=== PATIENT | male | born 1995 | race Caucasian/White ===

== ENCOUNTER 2018-08-01 16:04 | Emergency (ER) | payer BC ==
[2018-08-01 16:11] VITALS: BP 132/73; PULSE 78; RESP 18; TEMP 97.9
[2018-08-01] MEDS ORDERED: SULFAMETH-TMP DS STARTER PACK 2 TAB BTL PO STA (16:33)
[2018-08-01] MEDS ORDERED: CEPHALEXIN 500MG STARTER PACK 4 CAP BTL PO STA (16:33)
--- NOTE | 2018-08-01 16:36 | ED ---
General Adult HPI - General Chief complaint: Skin/Abscess/Foreign Body Stated complaint: FACIAL SWELLING Time Seen by Provider: 08/01/18 16:19 Source: patient, RN notes reviewed Mode of arrival: ambulatory Limitations: no limitations - History of Present Illness Initial comments: 23-year-old male presents to the emergency department for a chief complaint of abscess on the right side of the face. Patient states this started this morning. States that earlier he had some edema up to the lower portion of his right eye but since he has been up for the Day this has gone away. Denies fevers or chills. Denies any pain with movement of the eye denies any visual changes. Denies any pain in the eye whatsoever. Patient denies fevers or chills. Denies congestion. Patient has no other complaints at this time including shortness of breath, chest pain, abdominal pain, nausea or vomiting, headache, or visual changes. - Related Data Previous Rx's Medication Instructions Recorded Cephalexin [Keflex] 500 mg PO Q6HR 7 Days cap 08/01/18 Sulfamethox-Tmp 800-160Mg [Bactrim 1 tab PO Q12HR #14 tab 08/01/18 DS 800-160 mg] Allergies Allergy/AdvReac Type Severity Reaction Status Date / Time No Known Allergies Allergy Verified 08/01/18 16:11 Review of Systems ROS Statement: Those systems with pertinent positive or pertinent negative responses have been documented in the HPI. ROS Other: All systems not noted in ROS Statement are negative. Past Medical History Past Medical History: No Reported History History of Any Multi-Drug Resistant Organisms: None Reported Past Surgical History: No Surgical Hx Reported Past Psychological History: No Psychological Hx Reported Smoking Status: Former smoker Past Alcohol Use History: None Reported Past Drug Use History: None Reported General Exam Limitations: no limitations General appearance: alert, in no apparent distress Head exam: Present: atraumatic, normocephalic, normal inspection Eye exam: Present: normal appearance, PERRL, EOMI. Absent: scleral icterus, conjunctival injection, periorbital swelling (no right sided periorbital edema noted, no tenderness) ENT exam: Present: normal exam, mucous membranes moist Neck exam: Present: normal inspection, full ROM. Absent: tenderness, mening ismus, lymphadenopathy Respiratory exam: Present: normal lung sounds bilaterally. Absent: respiratory distress, wheezes, rales, rhonchi, stridor Cardiovascular Exam: Present: regular rate, normal rhythm, normal heart sounds. Absent: systolic murmur, diastolic murmur, rubs, gallop, clicks Neurological exam: Present: alert, oriented X3, CN II-XII intact Psychiatric exam: Present: normal affect, normal mood Skin exam: Present: other (There is a 1 cm x 1 cm abscess noted to the right cheek. No erythema or evidence of cellulitis.) Course Vital Signs 08/01/18 16:08 Temperature 97.9 F Pulse Rate 78 Respiratory 18 Rate Blood Pressure 132/73 O2 Sat by Pulse 98 Oximetry Procedures - Incision & Drainage Consent Obtained: verbal consent Indication: abscess Site: face Size (cm): 1 Anesthetic Used: lidocaine 1% Sterile Field Used?: Yes I&D Drainage Obtained: Pus Patient Tolerated Procedure: well (18 G needle used), no complications Medical Decision Making - Medical Decision Making 23-year-old male presents to the emergency department for a chief complaint of abscess noted to the right cheek. Mild edema around this however no edema noted to the right eye. Patient denies any visual changes, pain in the eye, or pain with extraocular movements. 1 cm x 1 cm abscess is noted. This was drained with an 18-gauge needle, purulent material expelled. Patient started on Keflex and Bactrim. However discussed her to return parameters as this is near the eye. Patient will return if this is worsening instead of improving, especially after 24 hours of antibiotic use. He will follow up with primary care in 1-2 days as well. Disposition Clinical Impression: Abscess Disposition: HOME SELF-CARE Condition: Good Instructions (If sedation given, give patient instructions): Abscess (ED), Warm Compress or Soak (ED) Additional Instructions: Please take antibiotics as directed. Please apply warm compresses for 20 minutes every hour or so. Follow-up with primary care in 1-2 days. However if you are noticing that after 24 hours this is worsening instead of improving then return here to the emergency department. Prescriptions: Sulfamethox-Tmp 800-160Mg [Bactrim DS 800-160 mg] 1 tab PO Q12HR #14 tab Cephalexin [Keflex] 500 mg PO Q6HR 7 Days cap Is patient prescribed a controlled substance at d/c from ED?: No Referrals: Veronica Bonilla MD [REFERRING] - 1-2 days Time of Disposition: 16:34
== END 2018-08-01 16:38 | disposition home or self-care (01) ==
LOC: EC 16:04
DX: L02.01 Cutaneous abscess of face (principal); Z87.891 Personal history of nicotine dependence
CPT/HCPCS: 10060; 99283

== ENCOUNTER 2018-11-08 15:48 | Emergency (ER) | payer BC ==
[2018-11-08 15:54] VITALS: RESP 18
[2018-11-08] MEDS ORDERED: KETOROLAC 30 MG/ML 1 ML VIAL IVP STA (16:19)
[2018-11-08 16:40] LABS: Basophils % (A) 1 %; Eosinophils # (A) 0.2 k/uL (0-0.7); Eosinophils % (A) 2 %; HCT 45.4 % (39.0-53.0); HGB 15.6 gm/dL (13.0-17.5); Lymphocytes # (A) 1.9 k/uL (1.0-4.8); Lymphocytes % (A) 24 %; MCH 29.7 pg (25.0-35.0); MCHC 34.4 g/dL (31.0-37.0); MCV 86.5 fL (80.0-100.0); Mean Platelet Volume 9.6; Monocytes # (A) 0.4 k/uL (0-1.0); Monocytes % (A) 5 %; Neutrophils # (A) 5.5 k/uL (1.3-7.7); Neutrophils % (A) 67 %; Platelet Count 226 k/uL (150-450); RBC 5.25 m/uL (4.30-5.90); WBC 8.1 k/uL (3.8-10.6)
--- NOTE | 2018-11-08 16:43 | ED ---
Chest Pain HPI - General Chief Complaint: Chest Pain Stated Complaint: CHEST PAIN Time Seen by Provider: 11/08/18 16:08 Source: patient Mode of arrival: wheelchair Limitations: no limitations - History of Present Illness Initial Comments: The patient is a 23-year-old male who presents to the emergency room with reported chest pain. Patient notes that the pain started around 3:00 today. It was sudden onset while he was at home sitting down feeding his baby. No history of similar in the past. He describes it as a "burning sensation" in his lungs. It is worse on the left side than the right. It is exacerbated by breathing. He denies taking any medications at home for his symptoms. He does report a tingling sensation in his bilateral hands. Denies any nausea, vomiting or diaphoresis. It was not provoked with food intake. He denies a cough, fever or hemoptysis. No recent upper respiratory infections. No history of DVTs or PEs. No family history of blood clotting disorders. No family history of DVT or PE. Denies any calf pain or swelling. No ripping or tearing sensation to his back. He denies any tingling or weakness in his lower extremities. No family history of sudden cardiac before the age of 50. He denies any abdominal pain. No pain in his flanks. Denies chest wall trauma or heavy lifting. There are no other alleviating, precipitating or modifying factors - Related Data Previous Rx's Medication Instructions Recorded Naproxen [Naprosyn] 500 mg PO Q12HR #20 tab 11/08/18 Allergies Allergy/AdvReac Type Severity Reaction Status Date / Time bee venom protein (honey bee) Allergy Anaphylaxis Verified 11/10/18 00:38 Review of Systems ROS Statement: Those systems with pertinent positive or pertinent negative responses have been documented in the HPI. ROS Other: All systems not noted in ROS Statement are negative. EKG Findings - EKG Comments: EKG Findings:: EKG demonstrates a normal sinus rhythm with a ventricular rate of 68. IN interval 140. QRS 80. QTC 397. There are mildly peaked T waves in V2 through V4. No inverted T waves. No signs of Akvbc-Ymyumgees-Bzpup or Brugada syndrome. No signs of ischemia or infarction. Past Medical History Past Medical History: No Reported History History of Any Multi-Drug Resistant Organisms: None Reported Past Surgical History: No Surgical Hx Reported Past Psychological History: Anxiety Smoking Status: Former smoker Past Alcohol Use History: None Reported Past Drug Use History: None Reported General Exam Limitations: no limitations General appearance: alert, in no apparent distress Head exam: Present: atraumatic, normocephalic, normal inspection Eye exam: Present: normal appearance, PERRL, EOMI. Absent: scleral icterus, conjunctival injection, periorbital swelling ENT exam: Present: normal exam, mucous membranes moist Neck exam: Present: normal inspection. Absent: tenderness, meningismus, lymphadenopathy Respiratory exam: Present: normal lung sounds bilaterally. Absent: respiratory distress, wheezes, rales, rhonchi, stridor Cardiovascular Exam: Present: regular rate, normal rhythm, normal heart sounds. Absent: systolic murmur, diastolic murmur, rubs, gallop, clicks GI/Abdominal exam: Present: soft, normal bowel sounds. Absent: distended, tenderness, guarding, rebound, rigid Extremities exam: Present: normal inspection, full ROM, normal capillary refill. Absent: tenderness, pedal edema, joint swelling, calf tenderness Back exam: Present: normal inspection Neurological exam: Present: alert, oriented X3, CN II-XII intact Psychiatric exam: Present: normal affect, normal mood Skin exam: Present: warm, dry, intact, normal color. Absent: rash Course Vital Signs 11/08/18 11/08/18 11/08/18 15:52 17:14 18:44 Temperature 97.7 F Pulse Rate 86 66 70 Respiratory 18 18 18 Rate Blood Pressure 149/86 120/81 120/83 O2 Sat by Pulse 100 98 98 Oximetry 11/08/18 11/08/18 19:10 20:01 Temperature 98.6 F Pulse Rate 80 62 Respiratory 18 18 Rate Blood Pressure 129/87 124/81 O2 Sat by Pulse 97 99 Oximetry Chest Pain MDM - Differential Diagnosis acute chest wall pain, pleurisy, pericarditis - MDM Upon arrival the patient was placed into room 15. A thorough history and physical exam was performed. The patient was hooked up to pulse ox and cardiac monitoring. A 12-lead EKG was performed which demonstrated normal sinus rhythm. IV was established. The patient was given 15 mg of Toradol. We did conduct laboratory studies the patient was sent for chest x-ray. Upon return, the results are discussed with the patient. He does admit to improvement in his symptoms however he does continue to have some discomfort. I did provide the patient's with 40 mg of Protonix. A bedside cardiac ultrasound was performed which demonstrated no pericardial effusion, pericardial tamponade or signs of a dilated right ventricle. I discussed the diagnosis, differential and treatment options. I did request that the patient stay for second troponin. Second troponin was drawn and is negative. At this time the patient will be discharged home and needs to follow-up with his primary care physician. Instructed him that he will need a formal echo, Holter monitoring and possibly an EGD. The patient understood. He did admit to improvement in his symptoms and was seen eating fast food in the exam room. Return parameters were discussed. If he has any new or worsening symptoms he should return to the emergency room. The patient was then discharged home in stable condition Disposition Clinical Impression: Chest pain Disposition: HOME SELF-CARE Condition: Stable Instructions (If sedation given, give patient instructions): Chest Pain (ED) Additional Instructions: Please follow-up with your primary care doctor in 1-2 days. Return to the emergency room for any new or worsening symptoms. You may need Holter monitoring, a formal echo and possibly an EGD Prescriptions: Naproxen [Naprosyn] 500 mg PO Q12HR #20 tab Is patient prescribed a controlled substance at d/c from ED?: No Referrals: Melony Kelley MD [Primary Care Provider] - 1-2 days Time of Disposition: 19:52
[2018-11-08 16:48] LABS: ALT 28 U/L (21-72); AST 23 U/L (17-59); African American GFR (CKD) >90 (>60 ml/min/1.73 sqM); Albumin 5.2 g/dL (3.5-5.0); Alkaline Phosphatase 63 U/L (38-126); Anion Gap 16 mmol/L; Blood Urea Nitrogen 13 mg/dL (9-20); Calcium 10.5 mg/dL (8.4-10.2); Carbon Dioxide 20 mmol/L (22-30); Chloride 102 mmol/L (98-107); Glucose 93 mg/dL (74-99); Magnesium 1.9 mg/dL (1.6-2.3); Non-African American GFR(CKD) >90 (>60 ml/min/1.73 sqM); Potassium 4.4 mmol/L (3.5-5.1); Sodium 138 mmol/L (137-145); Total Protein 8.7 g/dL (6.3-8.2)
[2018-11-08 16:52] LABS: D-Dimer <0.17 mg/L FEU (<0.60); Partial Thromboplastin Time 27.2 sec (22.0-30.0)
--- NOTE | 2018-11-08 16:57 | XR ---
EXAMINATION: XR chest 2V DATE AND TIME: 11/08/2018 4:42 PM CLINICAL INDICATION: PHH; Chest Pain TECHNIQUE: PA and lateral COMPARISON: 01/31/1995 FINDINGS: The lungs are clear. The pleural spaces are negative. The cardiac silhouette is not enlarged. The remainder of the mediastinal silhouette is unremarkable. The skeletal structures and soft tissues are negative for acute findings. IMPRESSION: NO ACUTE PROCESS.
[2018-11-08] MEDS ORDERED: PANTOPRAZOLE 40 MG/10 ML VIAL IVP STA (18:26)
[2018-11-08 20:03] VITALS: BP 124/81; PULSE 62; TEMP 98.6
== END 2018-11-08 20:06 | disposition home or self-care (01) ==
LOC: EC 15:48
DX: R07.9 Chest pain, unspecified (principal); R20.2 Paresthesia of skin; Z91.030 Bee allergy status; Z87.891 Personal history of nicotine dependence
CPT/HCPCS: 36415; 71046; 80053; 83690; 83735; 84484; 85025; 85379; 85610; 85652; 85730; 86140; 93005; 96374; 96375; 99285

== ENCOUNTER 2018-11-09 19:59 | Observation (INO) | payer BC ==
[2018-11-09] MEDS ORDERED: SODIUM CHLORIDE 0.9% 1,000 ML IV STA (20:12)
--- NOTE | 2018-11-09 20:35 | ED ---
Chest Pain HPI - General Chief Complaint: Chest Pain Stated Complaint: Chest Pain, [place] Time Seen by Provider: 11/09/18 20:13 Source: patient, RN notes reviewed, old records reviewed Mode of arrival: wheelchair Limitations: no limitations - History of Present Illness Initial Comments: This is a 23-year-old male the ER for evaluation presents today for evaluation of chest pain. Patient has history of chest pain significant. Chest pain is anterior chest left frontal chest feels like heaviness and tightness. Making patient mildly anxious. Patient denies any significant medical history no travel history no sick contacts no trauma no fever cough or congestion, patient denies drug or alcohol abuse. Occasionally smokes occasionally drinks. Family history of heart disease but no significant young sudden . MD Complaint: chest pain -: days(s) Onset: during rest, during exertion Pain Location: substernal, left chest Severity: mild Severity scale (1-10): 3 Quality: tightness, heaviness Consistency: constant Improves With: nothing Worsens With: nothing Anginal Symptoms: dyspnea Treatments Prior to Arrival: none - Related Data Previous Rx's Medication Instructions Recorded Naproxen [Naprosyn] 500 mg PO Q12HR #20 tab 11/08/18 Allergies Allergy/AdvReac Type Severity Reaction Status Date / Time bee venom protein (honey bee) Allergy Anaphylaxis Verified 11/09/18 20:16 Review of Systems ROS Statement: Those systems with pertinent positive or pertinent negative responses have been documented in the HPI. ROS Other: All systems not noted in ROS Statement are negative. EKG Findings - EKG Comments: EKG Findings:: EKG shows sinus rhythm rate 70, W[place] 1:30, QRS 86, QTc 460 Past Medical History Past Medical History: No Reported History History of Any Multi-Drug Resistant Organisms: None Reported Past Surgical History: No Surgical Hx Reported Past Psychological History: No Psychological Hx Reported Smoking Status: Current every day smoker Past Alcohol Use History: Occasional Past Drug Use History: None Reported General Exam Limitations: no limitations General appearance: alert, in no apparent distress Head exam: Present: atraumatic, normocephalic, normal inspection Eye exam: Present: normal appearance, PERRL, EOMI. Absent: scleral icterus, conjunctival injection, periorbital swelling ENT exam: Present: normal exam, mucous membranes moist Neck exam: Present: normal inspection. Absent: tenderness, meningismus, lymphadenopathy Respiratory exam: Present: normal lung sounds bilaterally. Absent: respiratory distress, wheezes, rales, rhonchi, stridor Cardiovascular Exam: Present: regular rate, normal rhythm, normal heart sounds. Absent: systolic murmur, diastolic murmur, rubs, gallop, clicks GI/Abdominal exam: Present: soft, normal bowel sounds. Absent: distended, tenderness, guarding, rebound, rigid Extremities exam: Present: normal inspection, full ROM, normal capillary refill. Absent: tenderness, pedal edema, joint swelling, calf tenderness Back exam: Present: normal inspection Neurological exam: Present: alert, oriented X3, CN II-XII intact Psychiatric exam: Present: normal affect, normal mood Skin exam: Present: warm, dry, intact, normal color. Absent: rash Course Vital Signs 11/09/18 11/09/18 20:03 20:37 Temperature 97.9 F Pulse Rate 80 Respiratory 18 Rate Blood Pressure 122/67 O2 Sat by Pulse 99 100 Oximetry - Reevaluation(s) Reevaluation #1: 11/09/18 21:36 Medical records reviewed Reevaluation #2: 11/09/18 21:36 no specific Findings to account for patient's symptoms Chest Pain MDM - MDM 23 male the ER for evaluation patient was essay for evaluation of chest pain, nonspecific chest pain here for yesterday for same today. Patient CT negative troponin still negative, EKG is unremarkable. Patient can be discharged home to follow-up with primary care regarding further evaluation of pain Disposition Clinical Impression: Chest pain Disposition: HOME SELF-CARE Condition: Good Instructions (If sedation given, give patient instructions): Chest Pain (ED) Is patient prescribed a controlled substance at d/c from ED?: No Referrals: Melony Kelley MD [Primary Care Provider] - 1-2 days
[2018-11-09 20:42] LABS: Partial Thromboplastin Time 27.4 sec (22.0-30.0); Prothrombin Time 10.9 sec (9.0-12.0)
[2018-11-09 20:43] LABS: ALT 26 U/L (21-72); AST 19 U/L (17-59); African American GFR (CKD) >90 (>60 ml/min/1.73 sqM); Albumin 4.9 g/dL (3.5-5.0); Alkaline Phosphatase 58 U/L (38-126); Anion Gap 14 mmol/L; Blood Urea Nitrogen 16 mg/dL (9-20); Calcium 9.9 mg/dL (8.4-10.2); Carbon Dioxide 20 mmol/L (22-30); Chloride 105 mmol/L (98-107); Creatine Kinase 94 U/L (55-170); Glucose 89 mg/dL (74-99); Potassium 4.1 mmol/L (3.5-5.1); Sodium 139 mmol/L (137-145); Total Bilirubin 1.4 mg/dL (0.2-1.3)
[2018-11-09] MEDS ORDERED: KETOROLAC 30 MG/ML 1 ML VIAL IVP STA (20:45)
[2018-11-09] MEDS ORDERED: DIAZEPAM 5 MG/ML 2 ML INJ IVP STA (20:45)
[2018-11-09 20:54] LABS: Creatine Kinase MB <0.2 ng/mL (0.0-2.4); Troponin I <0.012 ng/mL (0.000-0.034)
[2018-11-09 20:55] LABS: Basophils # (A) 0.1 k/uL (0-0.2); Basophils % (A) 1 %; Eosinophils # (A) 0.2 k/uL (0-0.7); Eosinophils % (A) 2 %; HCT 42.7 % (39.0-53.0); HGB 14.7 gm/dL (13.0-17.5); Lymphocytes # (A) 2.2 k/uL (1.0-4.8); Lymphocytes % (A) 30 %; MCH 29.7 pg (25.0-35.0); MCHC 34.3 g/dL (31.0-37.0); MCV 86.6 fL (80.0-100.0); Mean Platelet Volume 9.3; Monocytes # (A) 0.4 k/uL (0-1.0); Monocytes % (A) 6 %; Neutrophils # (A) 4.5 k/uL (1.3-7.7); Neutrophils % (A) 60 %; Platelet Count 230 k/uL (150-450); RBC 4.94 m/uL (4.30-5.90); WBC 7.5 k/uL (3.8-10.6)
--- NOTE | 2018-11-09 21:14 | XR ---
EXAMINATION: XR chest 2V DATE AND TIME: 11/09/2018 9:00 PM CLINICAL INDICATION: PHH; Chest Pain TECHNIQUE: Departmental protocol COMPARISON: 11/08/2018 FINDINGS: The lungs are clear. The pleural spaces are negative. The cardiac silhouette is not enlarged. The remainder of the mediastinal silhouette is unremarkable. The skeletal structures and soft tissues are negative for acute findings. IMPRESSION: NO ACUTE PROCESS.
--- NOTE | 2018-11-09 21:21 | CT ---
EXAMINATION TYPE: CT angio chest with contrast and with 3-D reconstruction renderings DATE OF EXAM: 11/09/2018 9:00 PM COMPARISON: Chest radiographs 11/08/2018 and 11/09/2018 HISTORY: Chest pain and shortness of breath. CT DLP: 279.2 mGycm Automated exposure control for dose reduction was used. CONTRAST: CTA scan of the thorax is performed with IV Contrast, patient injected with 100ml mL of Iso darryl 370, pulmonary embolism protocol. Three-D reconstructions. FINDINGS: AIRWAYS / LUNGS: There is no bronchiectasis. The lungs are clear and well-expanded. PLEURAL SPACES: Negative. MEDIASTINUM/JOSH: The pulmonary arterial tree is well opacified and is negative for filling defects to suggest pulmonary emboli. There is no acute aortic pathology. No cardiomegaly or pericardial effus ion. No adenopathy. SKELETAL STRUCTURES: No focal findings. OTHER: Unremarkable. IMPRESSION: No acute process.
--- NOTE | 2018-11-09 21:25 | CT ---
EXAMINATION TYPE: CT abdomen pelvis w con DATE OF EXAM: 11/09/2018 COMPARISON: None HISTORY: Chest pain and shortness of breath. CT DLP: 728.9 mGycm Automated exposure control for dose reduction was used. TECHNIQUE: Helical acquisition of images was performed from the lung bases through the pelvis. CONTRAST: Performed without Oral Contrast and with IV Contrast, patient injected with 100ml mL of Iso darryl 370. FINDINGS: LUNG BASES: No acute process. LIVER/GB: No significant abnormality is appreciated. PANCREAS: No significant abnormality is seen. SPLEEN: No significant abnormality is seen. ADRENALS: No significant abnormality is seen. KIDNEYS: No significant abnormality is seen. FREE AIR: No free air is visualized. RETROPERITONEAL ADENOPATHY: None visualized REPRODUCTIVE ORGANS: No significant abnormality is seen URINARY BLADDER: No significant abnormality is seen. PELVIC ADENOPATHY: None visualized. OSSEOUS STRUCTURES: No significant abnormality is seen. BOWEL: No significant abnormality is seen. OTHER: No acute vascular findings. IMPRESSION: No acute process.
[2018-11-09] MEDS ORDERED: NITROGLYCERIN SL TABS 0.4 MG TAB SUBLINGUAL PRN (22:13)
[2018-11-09] MEDS ORDERED: ASPIRIN 81 MG PO STA (22:13)
[2018-11-10 08:30] LABS: Cholesterol 166 mg/dL (<200); HDL Cholesterol 38 mg/dL (40-60); LDL Cholesterol,Calculated 98 mg/dL (0-99); Triglycerides 149 mg/dL (<150)
[2018-11-10] MEDS ORDERED: ASPIRIN 325 MG TAB PO SCH (09:00)
[2018-11-10 09:14] VITALS: RESP 16
--- NOTE | 2018-11-10 10:46 | P.CRDCN ---
History of Present Illness History of present illness: This is a pleasant 23-year-old male past medical history significant for chronic nicotine dependence. He denies history of coronary artery disease, hypertension, dyslipidemia or diabetes mellitus. We have been asked to see him in consultation secondary chest discomfort. For the previous 2 days he has felt a tight sensation in the midsternal region that is worse with deep inspiration or movement of his upper body. He states this pain comes intermittently with no specific aggravating or alleviating factor. There is no radiation to the arm, back, neck or jaw. This is not associated with shortness of breath, dizziness, nausea, vomiting or palpitations. He also came to the emergency department 2 days ago for evaluation and was discharged to the emergency department without any significant abnormalities noted. EKG reveals sinus mechanism with no acute ST or T wave abnormalities noted. CT of the abdomen and pelvis and chest is negative for pulmonary embolism or any acute process. Laboratory data reviewed, WBC 7.5, hemoglobin 14.7, platelets 230, sodium 139, potassium 4.1, creatinine 0.5, magnesium 2.0, cardiac enzymes negative 3, LDL 98, proBNP 20. He takes no daily cardiac medications. At the time of my exam: CONSTITUTIONAL: Denies fever. Denies chills. EYES: Denies blurred vision. Denies vision changes. Denies eye pain. EARS, NOSE, MOUTH & THROAT: Denies headache. Denies sore throat. Denies ear pain. CARDIOVASCULAR: Denies chest pain. Denies shortness of breath. Denies orthopnea. Denies PND. Denies palpitations. RESPIRATORY: Denies cough. GASTROINTESTINAL: Denies abdominal pain. Denies diarrhea. Denies constipation. Denies nausea. Denies vomiting. MUSCULOSKELETAL: Denies myalgias. INTEGUMENTARY: Denies pruitis. Denies rash. NEUROLOGIC: Denies numbness. Denies tingling. Denies weakness. PSYCHIATRIC: Denies anxiety. Denies depression. ENDOCRINE: Denies fatigue. Denies weight change. Denies polydipsia. Denies polyurina. GENITOURINARY: Denies burning, hematuria or urgency with micturation. HEMATOLOGIC: Denies history of anemia. Denies bleeding. Blood pressure 109/70 heart rate 69 afebrile maintaining oxygen saturation on room air GENERAL: This is a 23-year-old male in no apparent distress at the time of my examination. HEENT: Head is atraumatic, normocephalic. Pupils are equal, round. Sclerae anicteric. Conjunctivae are clear. Mucous membranes of the mouth are moist. Neck is supple. There is no jugular venous distention. No carotid bruit is heard. LUNGS: Clear to auscultation no wheezes, rales or rhonchi. No chest wall t enderness is noted on palpation or with deep breathing. HEART: Regular rate and rhythm without murmurs, rubs or gallops. S1 and S2 heard. ABDOMEN: Soft, nontender. Bowel sounds are heard. No organomegaly noted. EXTREMITIES: No evidence of peripheral edema and no calf tenderness noted. VASCULAR: Radial and dorsalis pedis pulses palpated, no evidence of clubbing. NEUROLOGIC: Patient is awake, alert and oriented x3. ASSESSMENT Chest pain, atypical. An acute event has been ruled out. Chronic nicotine dependence PLAN An acute event has been ruled out. Perform exercise stress test to assess for stress induced ischemia. Pain is very atypical to be of cardiac etiology, possibly related to underlying esophagitis or stress anxiety. If stress test is normal he is stable from a cardiac perspective. Thank you kindly for this consultation. Nurse Practitioner note has been reviewed, I agree with a documented findings and plan of care. Patient was seen and examined. Past Medical History Past Medical History: No Reported History History of Any Multi-Drug Resistant Organisms: None Reported Past Surgical History: Adenoidectomy, Tonsillectomy Additional Past Surgical History / Comment(s): tubes in ears Past Anesthesia/Blood Transfusion Reactions: No Reported Reaction Past Psychological History: No Psychological Hx Reported Smoking Status: Current every day smoker - Past Family History Mother Additional Family Medical History / Comment(s): anxiety, depression Father Family Medical History: Hypertension Sister(s) Family Medical History: No Reported History Son(s) Family Medical History: No Reported History Medications and Allergies Home Medications Medication Instructions Recorded Confirmed Type Naproxen [Naprosyn] 500 mg PO Q12HR #20 tab 11/08/18 11/10/18 Rx Allergies Allergy/AdvReac Type Severity Reaction Status Date / Time bee venom protein (honey bee) Allergy Anaphylaxis Verified 11/10/18 00:38 Physical Exam Vitals: Vital Signs Temp Pulse Pulse Resp BP BP Pulse Ox 11/10/18 04:00 97.9 F 77 18 95/54 98 11/10/18 00:00 97.7 F 61 18 118/71 97 11/09/18 23:30 65 16 111/74 98 11/09/18 20:37 100 11/09/18 20:03 97.9 F 80 18 122/67 99 Intake and Output 11/09/18 11/10/18 11/10/18 22:59 06:59 14:59 Other: Voiding Method Toilet # Voids 1 Weight 81.193 kg Results 11/09/18 20:20 11/09/18 20:20 Cardiac Enzymes 11/09/18 11/09/18 11/10/18 Range/Units 20:20 20:20 02:41 AST 19 (17-59) U/L CK-MB (CK-2) <0.2 (0.0-2.4) ng/mL Troponin I <0.012 <0.012 (0.000-0.034) ng/mL Coagulation 11/09/18 Range/Units 20:20 PT 10.9 (9.0-12.0) sec APTT 27.4 (22.0-30.0) sec CBC 11/09/18 Range/Units 20:20 WBC 7.5 (3.8-10.6) k/uL RBC 4.94 (4.30-5.90) m/uL Hgb 14.7 (13.0-17.5) gm/dL Hct 42.7 (39.0-53.0) % Plt Count 230 (150-450) k/uL Comprehensive Metabolic Panel 11/09/18 Range/Units 20:20 Sodium 139 (137-145) mmol/L Potassium 4.1 (3.5-5.1) mmol/L Chloride 105 (98-107) mmol/L Carbon Dioxide 20 L (22-30) mmol/L BUN 16 (9-20) mg/dL Creatinine 0.95 (0.66-1.25) mg/dL Glucose 89 (74-99) mg/dL Calcium 9.9 (8.4-10.2) mg/dL AST 19 (17-59) U/L ALT 26 (21-72) U/L Alkaline Phosphatase 58 (38-126) U/L Total Protein 8.0 (6.3-8.2) g/dL Albumin 4.9 (3.5-5.0) g/dL Current Medications Generic Name Dose Route Start Last Admin Trade Name Freq PRN Reason Stop Dose Admin Aspirin 325 mg 11/10/18 09:00 Aspirin PO DAILY MITALI Nitroglycerin 0.4 mg 11/09/18 22:13 Nitrostat SUBLINGUAL Q5M PRN Chest Pain Intake and Output 11/09/18 11/10/18 11/10/18 22:59 06:59 14:59 Other: Voiding Method Toilet # Voids 1 Weight 81.193 kg 11/09/18 20:20 11/09/18 20:20
[2018-11-10 12:17] VITALS: BP 107/71; PULSE 71; TEMP 97.7
--- NOTE | 2018-11-10 13:28 | EST ---
EXERCISE STRESS DATE OF SERVICE: 11/10/2018 AGE: 23 SEX: Male HT: 69" WT: 179 pounds PROTOCOL: Tim STAGE: IV DURATION OF EXERCISE: 11 minutes HEART RATE REST: 67 BLOOD PRESSURE REST: 143/70 MAXIMUM HEART RATE ACHIEVED: 175 MAXIMUM BLOOD PRESSURE: 208/75 85% MPHR: 167 100% MPHR: 196 METS: 12.1 INDICATIONS: Chest pain. CLINICAL INFORMATION: Baseline EKG revealed normal sinus rhythm without significant ST changes. Patient walked for 11 minutes. Maximal heart rate was 175 beats per minute. There was no evidence of any ischemia. The patient did not have any angina or arrhythmia. By EKG criteria, this is a negative stress test with good exercise capacity. FINAL IMPRESSION: 1. Negative stress test. 2. Good exercise capacity. 3. No arrhythmia and no angina. MMODL / IJN: [id number] /
--- NOTE | 2018-11-10 14:03 | P.HPIM ---
History of Present Illness 23-year-old pleasant gentleman with history of nicotine dependence came in with complaints of the chest tightness has been going on for 2 days midsternal constant not related to food no elevating or relieving factors no diaphoresis or shortness of breath associated with that patient had troponins that are negative EKG that is negative. Patient denies any fever chills cough. CAT scan of the chest is negative for pulmonary embolism or pneumonia. Patient was evaluated by cardiology. For discharge patient appears to have some musculoskeletal chest pain. He can continue his naproxen Review of Systems REVIEW OF SYSTEMS: CONSTITUTIONAL: No fever, no malaise, no fatigue. HEENT: No recent visual problems or hearing problems. Denied any sore throat. CARDIOVASCULAR: No orthopnea, PND, no palpitations, no syncope. PULMONARY: No shortness of breath, no cough, no hemoptysis. GASTROINTESTINAL: No diarrhea, no nausea, no vomiting, no abdominal pain. NEUROLOGICAL: No headaches, no weakness, no numbness. HEMATOLOGICAL: Denies any bleeding or petechiae. GENITOURINARY: Denies any burning micturition, frequency, or urgency. MUSCULOSKELETAL/RHEUMATOLOGICAL: Denies any joint pain, swelling, or any muscle pain. ENDOCRINE: Denies any polyuria or polydipsia. The rest of the 14-point review of systems is negative. Past Medical History Past Medical History: No Reported History History of Any Multi-Drug Resistant Organisms: None Reported Past Surgical History: Adenoidectomy, Tonsillectomy Additional Past Surgical History / Comment(s): tubes in ears Past Anesthesia/Blood Transfusion Reactions: No Reported Reaction Past Psychological History: No Psychological Hx Reported Smoking Status: Current every day smoker - Past Family History Mother Additional Family Medical History / Comment(s): anxiety, depression Father Family Medical History: Hypertension Sister(s) Family Medical History: No Reported History Son(s) Family Medical History: No Reported History Medications and Allergies Home Medications Medication Instructions Recorded Confirmed Type Naproxen [Naprosyn] 500 mg PO Q12HR #20 tab 11/08/18 11/10/18 Rx Allergies Allergy/AdvReac Type Severity Reaction Status Date / Time bee venom protein (honey bee) Allergy Anaphylaxis Verified 11/10/18 00:38 Physical Exam Vitals: Vital Signs Temp Pulse Pulse Resp BP BP Pulse Ox 11/10/18 12:00 97.7 F 71 16 107/71 100 11/10/18 08:00 97.8 F 69 16 109/70 97 11/10/18 04:00 97.9 F 77 18 95/54 98 11/10/18 00:00 97.7 F 61 18 118/71 97 11/09/18 23:30 65 16 111/74 98 11/09/18 20:37 100 11/09/18 20:03 97.9 F 80 18 122/67 99 Intake and Output 11/09/18 11/10/18 11/10/18 22:59 06:59 14:59 Other: Voiding Method Toilet Toilet # Voids 1 Weight 81.193 kg 81.193 kg PHYSICAL EXAMINATION: GENERAL: The patient is alert and oriented x3, not in any acute distress. Well developed, well nourished. HEENT: Pupils are round and equally reacting to light. EOMI. No scleral icterus. No conjunctival pallor. Normocephalic, atraumatic. No pharyngeal erythema. No thyromegaly. CARDIOVASCULAR: S1 and S2 present. No murmurs, rubs, or gallops. PULMONARY: Chest is clear to auscultation, no wheezing or crackles. ABDOMEN: Soft, nontender, nondistended, normoactive bowel sounds. No palpable organomegaly. MUSCULOSKELETAL: No joint swelling or deformity. EXTREMITIES: No cyanosis, clubbing, or pedal edema. NEUROLOGICAL: Gross neurological examination did not reveal any focal deficits. SKIN: No rashes. Results CBC & Chem 7: 11/09/18 20:20 11/09/18 20:20 Labs: Abnormal Lab Results - Last 24 Hours (Table) 11/09/18 11/10/18 Range/Units 20:20 07:41 Carbon Dioxide 20 L (22-30) mmol/L Total Bilirubin 1.4 H (0.2-1.3) mg/dL HDL Cholesterol 38 L (40-60) mg/dL Thrombosis Risk Factor Assmnt - Choose All That Apply Any of the Below Risk Factors Present?: Yes Each Factor Represents 1 point: Obesity (BMI >25) Other Risk Factors: No Other congenital or acquired thrombophilia - If yes, enter type in comment: No Thrombosis Risk Factor Assessment Total Risk Factor Score: 1 Thrombosis Risk Factor Assessment Level: Low Risk Assessment and Plan Plan: -Chest pain rule out acute coronary syndromes ruled out pneumonia or pulmonary embolism patient is clinically doing well will be discharged today. Stresses is negative for any inducible ischemia -Nicotine dependence: Counseling was provided
--- NOTE | 2018-11-10 14:03 | P.DS ---
Providers Date of admission: 11/09/18 22:14 Attending physician: Willow Suero Consults: 11/10/18 00:12 Consult Physician Routine Consulting Provider: Link Reynolds Consult Reason/Comments: chest pain Do you want consulting provider notified?: Yes, Notify in am Primary care physician: Melony Kelley MD Hospital Course: Please refer to my HPI Patient Condition at Discharge: Good Plan - Discharge Summary Discharge Rx Participant: No New Discharge Prescriptions: No Action Naproxen [Naprosyn] 500 mg PO Q12HR #20 tab Discharge Medication List Naproxen [Naprosyn] 500 mg PO Q12HR #20 tab 11/08/18 [Rx] Follow up Appointment(s)/Referral(s): Melony Kelley MD [Primary Care Provider] - 3 Days Patient Instructions/Handouts: Chest Pain (ED) Discharge Disposition: HOME SELF-CARE
== END 2018-11-10 13:39 | disposition home or self-care (01) ==
LOC: EC 19:59 → 1SOBS 22:14
PROVIDERS: ADMIT Hospitalist; ATTEND Hospitalist
DX: R07.89 Other chest pain (principal); R06.00 Dyspnea, unspecified; F17.200 Nicotine dependence, unspecified, uncomplicated; Z91.030 Bee allergy status; Z79.1 Long term (current) use of non-steroidal anti-inflammatories (NSAID); E66.9 Obesity, unspecified; Z68.26 Body mass index [BMI] 26.0-26.9, adult; Z82.49 Family history of ischemic heart disease and other diseases of the circulatory system; Z81.8 Family history of other mental and behavioral disorders
CPT/HCPCS: 96361; 96374; 96375; 99285; 36415; 93005; 93017; 83880; 80061; 80053; 82550; 82553; 83690; 83735; 84484 ×2; 85025; 85610; 85730; 71046; 71275; 74177; G0378 ×2; J3360; J1885; Q9967

== ENCOUNTER → 2019-01-04 | Outpatient (CLI) | payer BC ==
--- NOTE | 2019-01-04 11:59 | ECHOF ---
Referral Reason:R07.89 Chest pain MEASUREMENTS -------- HEIGHT: 175.3 cm WEIGHT: 77.1 kg BP: RVIDd: 3.3 cm (< 3.3) IVSd: 1.1 cm (0.6 - 1.1) LVIDd: 4.1 cm (3.9 - 5.3) LVPWd: 0.9 cm (0.6 - 1.1) IVSs: 1.5 cm LVIDs: 2.9 cm LVPWs: 1.3 cm LA Diam: 3.6 cm (2.7 - 3.8) LAESV Index (A-L): 19.70 ml/m Ao Diam: 3.0 cm (2.0 - 3.7) AV Cusp: 2.0 cm (1.5 - 2.6) LA Diam: 3.3 cm (2.7 - 3.8) MV EXCURSION: 18.395 mm (> 18.000) MV EF SLOPE: 98 mm/s (70 - 150) EPSS: 0.2 cm MV E Uche: 0.87 m/s MV DecT: 159 ms MV A Uche: 0.44 m/s MV E/A Ratio: 1.99 RAP: 5.00 mmHg RVSP: 19.35 mmHg FINDINGS -------- Sinus rhythm. This was a technically good study. LV size, wall thickness and systolic function are normal, with an EF greater than 55%. The left flower tricular size is normal. The diastolic filling pattern is normal for the age of the patient 8.29. The right ventricle is normal in size. Normal LA size by volume 22+/-6 ml/m2. The right atrial size is normal. The aortic valve is trileaflet, and appears structurally normal. No aortic stenosis or regurgitation. The mitral valve is normal. There is trace mitral regurgitation. Mild tricuspid regurgitation present. There is no evidence of pulmonary hypertension. The right v entricular systolic pressure, as measured by Doppler, is 19.35mmHg. Trace/mild (physiologic) pulmonic regurgitation. The aortic root size is normal. There is no pericardial effusion. CONCLUSIONS -------- 1. Sinus rhythm. 2. This was a technically good study. 3. LV size, wall thickness and systolic function are normal, with an EF greater than 55%. 4. The left ventricular size is normal. 5. The diastolic filling pattern is normal for the age of the patient 8.29 6. Normal LA size by volume 22+/-6 ml/m2. 7. The aortic valve is trileaflet, and appears structurally normal. No aortic stenosis or regurgitati on. 8. The mitral valve is normal. 9. There is trace mitral regurgitation. 10. Mild tricuspid regurgitation present. 11. There is no evidence of pulmonary hypertension. 12. Trace/mild (physiologic) pulmonic regurgitation. 13. The aortic root size is normal. 14. There is no pericardial effusion. MACHINE CONTAINER WASHER: Olesya Kolb RDCS
== END | disposition home or self-care (01) ==
LOC: RADECHMAIN 08:58
PROVIDERS: ATTEND Family Medicine
DX: I07.1 Rheumatic tricuspid insufficiency (principal); I37.1 Nonrheumatic pulmonary valve insufficiency
CPT/HCPCS: 93306

== ENCOUNTER 2019-10-23 13:50 | Emergency (ER) | payer BC, OTHER ==
[2019-10-23 13:58] VITALS: BP 116/64; PULSE 86; RESP 18; TEMP 98
--- NOTE | 2019-10-23 14:39 | XR ---
EXAMINATION TYPE: XR knee complete RT DATE OF EXAM: 10/23/2019 COMPARISON: None HISTORY: Right knee pain TECHNIQUE: Three-view right knee FINDINGS: No acute fractures or dislocations are evident. No joint effusion is evident. Joint spaces are served. IMPRESSION: 1. Normal three-view right knee. 2. Follow-up exams can be performed 7-10 days from acute trauma for continued pain.
[2019-10-23] MEDS ORDERED: ACET/COD 300 MG/30 MG STARTER PACK 6 TAB BTL PO STA (14:45)
--- NOTE | 2019-10-23 14:45 | ED ---
Lower Extremity Injury HPI - General Chief Complaint: Extremity Injury, Lower Stated Complaint: [facility] R Leg Injury Time Seen by Provider: 10/23/19 14:07 Source: patient, family Mode of arrival: wheelchair Limitations: no limitations - History of Present Illness Initial Comments: 24-year-old male presenting today for chief complaint of right knee pain after injury at work yesterday. Patient states he was struck by a hose history and his knee anteriorly denies dislocation. Patient states he is able to weight- bear and ambulate after. Patient states he has had increasing soreness anteriorly set after the fall patient denies any numbness tingling or loss of sensation coolness or pallor of the extremity. Patient denies any redness or swelling. Patient admits to small abrasion about the knee. Denies a deep laceration. Denies any other areas of injury does any injury to head neck above the knee. Upon arrival patient appears well there is no signs of acute distress. - Related Data Previous Rx's Medication Instructions Recorded Naproxen [Naprosyn] 500 mg PO Q12HR #20 tab 11/08/18 Allergies Allergy/AdvReac Type Severity Reaction Status Date / Time bee venom protein (honey bee) Allergy Anaphylaxis Verified 10/23/19 13:56 Review of Systems ROS Statement: Those systems with pertinent positive or pertinent negative responses have been documented in the HPI. ROS Other: All systems not noted in ROS Statement are negative. Past Medical History Past Medical History: No Reported History History of Any Multi-Drug Resistant Organisms: None Reported Past Surgical History: Adenoidectomy, Tonsillectomy Additional Past Surgical History / Comment(s): tubes in ears Past Anesthesia/Blood Transfusion Reactions: No Reported Reaction Past Psychological History: No Psychological Hx Reported Smoking Status: Current some day smoker Past Alcohol Use History: Occasional Past Drug Use History: None Reported - Past Family History Mother Additional Family Medical History / Comment(s): anxiety, depression Father Family Medical History: Hypertension Sister(s) Family Medical History: No Reported History Son(s) Family Medical History: No Reported History General Exam - General Exam Comments Initial Comments: General: The patient is awake and alert, in no distress Eye: +3 mm pupils are equal, round and reactive to light, extra-ocular movements are intact. No nystagmus. There is normal conjunctiva bilaterally. No signs of icterus. Cardiovascular: There is a regular rate and rhythm. No murmur, rub or gallop is appreciated. Respiratory: Lungs are clear to auscultation, respirations are non-labored, breath sounds are equal. No wheezes, stridor, rales, or rhonchi. Gastrointestinal: Soft, non-distended, non-tender abdomen without masses or organomegaly noted. There is no rebound or guarding present Musculoskeletal: Normal inspection of the knees bilaterally no significant soft tissue swelling or redness. No bogginess of the patellar or quadriceps tendons. Extensor mechanism intact Normal ROM, with discomfort to the right knee Strength 5/5. Sensation intact. Radial and DP pulses equal bilaterally 2+. Neurological: A&O x 3. CN II-XII intact grossly, There are no obvious motor or sensory deficits. Coordination appears grossly intact. Speech is normal. Skin: Skin is warm and dry and no rashes or lesions are noted. Psychiatric: Cooperative, appropriate mood & affect, normal judgment. Limitations: no limitations Course Vital Signs 10/23/19 13:54 Temperature 98.0 F Pulse Rate 86 Respiratory 18 Rate Blood Pressure 116/64 O2 Sat by Pulse 98 Oximetry Medical Decision Making - Medical Decision Making X-ray negative for acute osseous injury. Quadriceps of the infrapatellar tendon appear intact patient extensor mechanism intact. Patient is no bogginess above and below the kneeand swelling. Patient neurovascularly intact compartments are soft and compressible at this time feel patient is stable for discharge with outpatient PCP and orthopedic f/u. He is to rest knees, take NSAIDs and ice need. LETHA bandage applied in the ER. Patient discharged appearing well. Disposition Clinical Impression: Right anterior knee pain, Right knee injury Disposition: HOME SELF-CARE Condition: Good Instructions (If sedation given, give patient instructions): Knee Sprain (ED) Additional Instructions: Please use medication as discussed. Please follow-up with family doctor in the next 2 days, recommend orthopedic follow-up for persistent pain to ensure no ligamentous injury as discussed. Please return to emergency room if the symptoms increase or worsen or for any other concerns. Is patient prescribed a controlled substance at d/c from ED?: No Referrals: None,Stated [Primary Care Provider] - 1-2 days Sherman Herring MD [STAFF PHYSICIAN] - 1-2 days Time of Disposition: 14:45
== END 2019-10-23 15:01 | disposition home or self-care (01) ==
LOC: EC 13:50
DX: S89.91XA Unspecified injury of right lower leg, initial encounter (principal); F17.200 Nicotine dependence, unspecified, uncomplicated; Z91.030 Bee allergy status; W22.8XXA Striking against or struck by other objects, initial encounter; Y92.69 Other specified industrial and construction area as the place of occurrence of the external cause; Y99.0 Civilian activity done for income or pay
CPT/HCPCS: 99283

== ENCOUNTER 2020-02-27 19:12 | Emergency (ER) | payer BC, OTHER ==
[2020-02-27 19:50] VITALS: BP 117/77; PULSE 67; TEMP 98.7
--- NOTE | 2020-02-27 20:09 | ED ---
URI HPI - General Chief Complaint: Upper Respiratory Infection Stated Complaint: Wants COVID Test Time Seen by Provider: 02/27/20 19:54 Source: patient Mode of arrival: ambulatory Limitations: no limitations - History of Present Illness Initial Comments: 24-year-old male patient presents to the emergency department today for evaluation of nasal congestion and cough. Patient states that symptoms of the last couple of days. States some and his job did test positive for cocaine and he was exposed to that person. Patient denies any chest pain or shortness of breath. Denies sputum production. Denies fever or chills. Denies lost of taste or smell. States the symptoms are very mild and he is only wanting to be tested for COVID-19. He does admit to smoking cigarettes. Denies any chronic medical conditions. Patient denies any recent rash, abdominal pain, nausea, vomiting, diarrhea, constipation, back pain, numbness, tingling, dizziness, weakness, hematuria, dysuria, urinary urgency, urinary frequency, headache, visual changes, or any other complaints. - Related Data Previous Rx's Medication Instructions Recorded Naproxen [Naprosyn] 500 mg PO Q12HR #20 tab 11/08/18 Allergies Allergy/AdvReac Type Severity Reaction Status Date / Time bee venom protein (honey bee) Allergy Anaphylaxis Verified 02/27/20 19:50 Review of Systems ROS Statement: Those systems with pertinent positive or pertinent negative responses have been documented in the HPI. ROS Other: All systems not noted in ROS Statement are negative. Past Medical History Past Medical History: No Reported History History of Any Multi-Drug Resistant Organisms: None Reported Past Surgical History: Adenoidectomy, Tonsillectomy Additional Past Surgical History / Comment(s): tubes in ears Past Anesthesia/Blood Transfusion Reactions: No Reported Reaction Past Psychological History: No Psychological Hx Reported Smoking Status: Current some day smoker, Vaper Past Alcohol Use History: Occasional Past Drug Use History: None Reported - Past Family History Mother Additional Family Medical History / Comment(s): anxiety, depression Father Family Medical History: Hypertension Sister(s) Family Medical History: No Reported History Son(s) Family Medical History: No Reported History General Exam Limitations: no limitations General appearance: alert, in no apparent distress, other (This is a well- developed, well-nourished adult male patient in no acute distress. Vital signs upon presentation are temperature 98.7F, pulse 67, respirations 20, blood pressure 117/77, pulse ox 98% on room air.) Eye exam: Present: normal appearance, PERRL, EOMI. Absent: scleral icterus, conjunctival injection, periorbital swelling ENT exam: Present: normal exam, normal oropharynx, mucous membranes moist, TM's normal bilaterally Respiratory exam: Present: normal lung sounds bilaterally. Absent: respiratory distress, wheezes, rales, rhonchi, stridor Cardiovascular Exam: Present: regular rate, normal rhythm, normal heart sounds. Absent: systolic murmur, diastolic murmur, rubs, gallop, clicks GI/Abdominal exam: Present: soft, normal bowel sounds. Absent: distended, tenderness, guarding, rebound, rigid Neurological exam: Present: alert, oriented X3, CN II-XII intact Psychiatric exam: Present: normal affect, normal mood Skin exam: Present: warm, dry, intact, normal color. Absent: rash Course Vital Signs 02/27/20 02/27/20 19:47 20:08 Temperature 98.7 F Pulse Rate 67 Respiratory 20 18 Rate Blood Pressure 117/77 O2 Sat by Pulse 98 Oximetry Medical Decision Making - Medical Decision Making 24-year-old male patient presents to the emergency department today for evaluation of nasal congestion and mild cough. Physical examination is unremarkable. Lungs are clear to auscultation with good air movement. He is in no respiratory distress. Vital signs are within normal ranges, pulse ox 98% on room air. He is afebrile. Patient was exposed to someone at work was positive for Covid and developed symptoms a couple of days ago. He states his symptoms are mild is requesting COVID-19 testing only. We will send the swab. He'll be discharged with instructions to quarantine until he has his results. He is instructed to follow-up with his primary care physician for recheck in 1-2 days. We did discuss return parameters in detail. He verbalizes understanding and agrees with this plan. Disposition Clinical Impression: Viral upper respiratory illness Disposition: HOME SELF-CARE Condition: Good Instructions (If sedation given, give patient instructions): Upper Respiratory Infection (ED) Additional Instructions: Increase fluids. Rest. Elevate cold did test results. Follow-up through primary care physician for recheck in 1-2 days. Return to the emergency department immediately for any new, worsening, or concerning symptoms. Is patient prescribed a controlled substance at d/c from ED?: No Referrals: None,Stated [Primary Care Provider] - 1-2 days Time of Disposition: 20:09
[2020-02-27 20:12] VITALS: RESP 18
== END 2020-02-27 20:45 | disposition home or self-care (01) ==
LOC: EC 19:12
DX: J39.8 Other specified diseases of upper respiratory tract (principal); B34.9 Viral infection, unspecified; F17.210 Nicotine dependence, cigarettes, uncomplicated; F17.290 Nicotine dependence, other tobacco product, uncomplicated; Z91.030 Bee allergy status; Z20.828 Contact with and (suspected) exposure to other viral communicable diseases
CPT/HCPCS: 87635; 99283

== ENCOUNTER 2020-12-05 18:20 | Emergency (ER) | payer OTHER ==
[2020-12-05] MEDS ORDERED: SODIUM CHLORIDE 0.9% 1,000 ML IV STA (19:17)
[2020-12-05 19:40] LABS: Appearance,Urine Clear (Clear); Basophils # (A) 0.1 k/uL (0-0.2); Basophils % (A) 1 %; Bilirubin,Urine Negative (Negative); Blood,Urine Negative (Negative); Color,Urine Yellow; Eosinophils # (A) 0.2 k/uL (0-0.7); Eosinophils % (A) 3 %; Glucose,Urine (UA) Negative (Negative); HCT 43.5 % (39.0-53.0); HGB 14.5 gm/dL (13.0-17.5); Ketones,Urine Negative (Negative); Leukocyte Esterase,Urine Negative (Negative); Lymphocytes # (A) 2.3 k/uL (1.0-4.8); Lymphocytes % (A) 28 %; MCH 29.8 pg (25.0-35.0); MCHC 33.3 g/dL (31.0-37.0); MCV 89.6 fL (80.0-100.0); Mean Platelet Volume 9.8; Monocytes # (A) 0.4 k/uL (0-1.0); Monocytes % (A) 5 %; Neutrophils # (A) 5.1 k/uL (1.3-7.7); Neutrophils % (A) 61 %; Nitrite,Urine Negative (Negative); PH, Urine 6.5 (5.0-8.0); Platelet Count 235 k/uL (150-450); Protein,Urine Negative (Negative); RBC 4.86 m/uL (4.30-5.90); RDW 13.8 % (11.5-15.5); Specific Gravity,Urine 1.016 (1.001-1.035); Urobilinogen,Urine <2.0 mg/dL (<2.0); WBC 8.3 k/uL (3.8-10.6)
[2020-12-05 19:49] LABS: ALT 58 U/L (4-49); AST 34 U/L (17-59); African American GFR (CKD) >90 (>60 ml/min/1.73 sqM); Alkaline Phosphatase 60 U/L (38-126); Anion Gap 10 mmol/L; Blood Urea Nitrogen 18 mg/dL (9-20); Calcium 10.1 mg/dL (8.4-10.2); Carbon Dioxide 24 mmol/L (22-30); Chloride 102 mmol/L (98-107); Glucose 98 mg/dL (74-99); Non-African American GFR(CKD) >90 (>60 ml/min/1.73 sqM); Sodium 136 mmol/L (137-145); Total Bilirubin 1.1 mg/dL (0.2-1.3); Total Protein 7.9 g/dL (6.3-8.2)
--- NOTE | 2020-12-05 19:56 | ED ---
General Adult HPI - General Chief complaint: Dizziness Stated complaint: SOB,Light headed, hands numb Time Seen by Provider: 12/05/20 18:59 Source: patient Mode of arrival: ambulatory Limitations: no limitations - History of Present Illness Initial comments: 25 year-old male patient presents to the emergency department for evaluation of dizziness and near syncope while driving. States that he started with numbness in his bilateral hands and face. States that it started while he was driving. States he thought it was a panic attack. States that symptoms worsened to the point he thought he was going to pass out. States that never happened during a panic attack before so he became concerned. States that the symptoms are coming and going. Denies any current use of medications, alcohol, or drugs. Denies any headache, blurred vision, double vision. Denies weakness to the extremities. Denies nausea, vomiting, constipation, or diarrhea. Denies any fever or chills. Patient denies any recent rash, cough, shortness of breath, chest pain, abdominal pain, back pain, numbness, tingling, dizziness, weakness, hematuria, dysuria, urinary urgency, urinary frequency, or any other complaints. - Related Data Allergies Allergy/AdvReac Type Severity Reaction Status Date / Time bee venom protein (honey bee) Allergy Anaphylaxis Verified 02/27/20 19:50 Review of Systems ROS Statement: Those systems with pertinent positive or pertinent negative responses have been documented in the HPI. ROS Other: All systems not noted in ROS Statement are negative. Past Medical History Past Medical History: No Reported History History of Any Multi-Drug Resistant Organisms: None Reported Past Surgical History: Adenoidectomy, Tonsillectomy Additional Past Surgical History / Comment(s): tubes in ears Past Anesthesia/Blood Transfusion Reactions: No Reported Reaction Past Psychological History: No Psychological Hx Reported Smoking Status: Current some day smoker, Vaper Past Alcohol Use History: Occasional Past Drug Use History: None Reported - Past Family History Mother Additional Family Medical History / Comment(s): anxiety, depression Father Family Medical History: Hypertension Sister(s) Family Medical History: No Reported History Son(s) Family Medical History: No Reported History General Exam Limitations: no limitations General appearance: alert, in no apparent distress, other (Physical well- developed, well-nourished adult male patient in no acute distress. Vital signs upon presentation are temperature 98.2F, pulse 85, respirations 19, blood pressure 131/74, pulse ox 98% on room air.) Eye exam: Present: normal appearance, PERRL, EOMI. Absent: scleral icterus, conjunctival injection, nystagmus, periorbital swelling ENT exam: Present: normal exam, normal oropharynx, mucous membranes moist Respiratory exam: Present: normal lung sounds bilaterally. Absent: respiratory distress, wheezes, rales, rhonchi, stridor Cardiovascular Exam: Present: regular rate, normal rhythm, normal heart sounds. Absent: systolic murmur, diastolic murmur, rubs, gallop, clicks GI/Abdominal exam: Present: soft, normal bowel sounds. Absent: distended, tenderness, guarding, rebound, rigid Neurological exam: Present: alert, oriented X3, CN II-XII intact Expanded Speech: Present: fluid speech Cranial nerves: EOM's Intact: Normal, Tongue Deviation: Normal Motor strength exam: RUE: 5, LUE: 5, RLE: 5, LLE: 5 Psychiatric exam: Present: normal affect, normal mood Skin exam: Present: warm, dry, intact, normal color. Absent: rash Course Vital Signs 12/05/20 12/05/20 12/05/20 18:31 19:48 20:45 Temperature 98.2 F 98 F Pulse Rate 85 75 71 Respiratory 19 24 22 Rate Blood Pressure 131/74 120/75 108/69 O2 Sat by Pulse 98 98 97 Oximetry EKG Findings - EKG Comments: EKG Findings:: EKG obtained at 1840 shows normal sinus rhythm with a ventricular rate of 97, DC interval 134, QRS duration 86, QT 368, QTC 467. No evidence of ST elevation or depression. Medical Decision Making - Medical Decision Making 25-year-old male patient presents to the emergency department today for evaluation of paresthesia and near syncope while driving. Does have history of panic attacks and states the symptoms are similar except for the near passing out. Physical examination is unremarkable. He is neurologically intact with no focal deficits. EKG was unremarkable. Cardiac monitoring shows normal sinus throughout stay. Labs reviewed and are unremarkable. I did discuss findings and results with him. He is given a dose of Ativan. He'll be discharged up with his primary care physician for recheck in 1-2 days. Return parameters were d iscussed in detail. He verbalizes understanding and agrees this plan. Case discussed with my attending Dr. Lawton. - Lab Data Result diagrams: 12/05/20 19:19 12/05/20 19:19 Lab Results 12/05/20 12/05/20 12/05/20 Range/Units 19:19 19:19 19:19 WBC 8.3 (3.8-10.6) k/uL RBC 4.86 (4.30-5.90) m/uL Hgb 14.5 (13.0-17.5) gm/dL Hct 43.5 (39.0-53.0) % MCV 89.6 (80.0-100.0) fL MCH 29.8 (25.0-35.0) pg MCHC 33.3 (31.0-37.0) g/dL RDW 13.8 (11.5-15.5) % Plt Count 235 (150-450) k/uL MPV 9.8 Neutrophils % 61 % Lymphocytes % 28 % Monocytes % 5 % Eosinophils % 3 % Basophils % 1 % Neutrophils # 5.1 (1.3-7.7) k/uL Lymphocytes # 2.3 (1.0-4.8) k/uL Monocytes # 0.4 (0-1.0) k/uL Eosinophils # 0.2 (0-0.7) k/uL Basophils # 0.1 (0-0.2) k/uL Sodium 136 L (137-145) mmol/L Potassium 4.0 (3.5-5.1) mmol/L Chloride 102 (98-107) mmol/L Carbon Dioxide 24 (22-30) mmol/L Anion Gap 10 mmol/L BUN 18 (9-20) mg/dL Creatinine 0.98 (0.66-1.25) mg/dL Est GFR (CKD-EPI)AfAm >90 (>60 ml/min/1.73 sqM) Est GFR (CKD-EPI)NonAf >90 (>60 ml/min/1.73 sqM) Glucose 98 (74-99) mg/dL Plasma Lactic Acid Pantera (0.7-2.0) mmol/L Calcium 10.1 (8.4-10.2) mg/dL Total Bilirubin 1.1 (0.2-1.3) mg/dL AST 34 (17-59) U/L ALT 58 H (4-49) U/L Alkaline Phosphatase 60 (38-126) U/L Troponin I (0.000-0.034) ng/mL Total Protein 7.9 (6.3-8.2) g/dL Albumin 5.0 (3.5-5.0) g/dL Urine Color Yellow Urine Appearance Clear (Clear) Urine pH 6.5 (5.0-8.0) Ur Specific [place] 1.016 (1.001-1.035) Urine Protein Negative (Negative) Urine Glucose (UA) Negative (Negative) Urine Ketones Negative (Negative) Urine Blood Negative (Negative) Urine Nitrite Negative (Negative) Urine Bilirubin Negative (Negative) Urine Urobilinogen <2.0 (<2.0) mg/dL Ur Leukocyte Esterase Negative (Negative) Urine Opiates Screen Not Detected (NotDetected) Ur Oxycodone Screen Not Detected (NotDetected) Urine Methadone Screen Not Detected (NotDetected) Ur Propoxyphene Screen Not Detected (NotDetected) Ur Barbiturates Screen Not Detected (NotDetected) U Tricyclic Antidepress Not Detected (NotDetected) Ur Phencyclidine Scrn Not Detected (NotDetected) Ur Amphetamines Screen Not Detected (NotDetected) U Methamphetamines Scrn Not Detected (NotDetected) U Benzodiazepines Scrn Not Detected (NotDetected) Urine Cocaine Screen Not Detected (NotDetected) U Marijuana (THC) Screen Not Detected (NotDetected) 12/05/20 12/05/20 Range/Units 19:19 19:19 WBC (3.8-10.6) k/uL RBC (4.30-5.90) m/uL Hgb (13.0-17.5) gm/dL Hct (39.0-53.0) % MCV (80.0-100.0) fL MCH (25.0-35.0) pg MCHC (31.0-37.0) g/dL RDW (11.5-15.5) % Plt Count (150-450) k/uL MPV Neutrophils % % Lymphocytes % % Monocytes % % Eosinophils % % Basophils % % Neutrophils # (1.3-7.7) k/uL Lymphocytes # (1.0-4.8) k/uL Monocytes # (0-1.0) k/uL Eosinophils # (0-0.7) k/uL Basophils # (0-0.2) k/uL Sodium (137-145) mmol/L Potassium (3.5-5.1) mmol/L Chloride (98-107) mmol/L Carbon Dioxide (22-30) mmol/L Anion Gap mmol/L BUN (9-20) mg/dL Creatinine (0.66-1.25) mg/dL Est GFR (CKD-EPI)AfAm (>60 ml/min/1.73 sqM) Est GFR (CKD-EPI)NonAf (>60 ml/min/1.73 sqM) Glucose (74-99) mg/dL Plasma Lactic Acid Pantera 0.8 (0.7-2.0) mmol/L Calcium (8.4-10.2) mg/dL Total Bilirubin (0.2-1.3) mg/dL AST (17-59) U/L ALT (4-49) U/L Alkaline Phosphatase (38-126) U/L Troponin I <0.012 (0.000-0.034) ng/mL Total Protein (6.3-8.2) g/dL Albumin (3.5-5.0) g/dL Urine Color Urine Appearance (Clear) Urine pH (5.0-8.0) Ur Specific [place] (1.001-1.035) Urine Protein (Negative) Urine Glucose (UA) (Negative) Urine Ketones (Negative) Urine Blood (Negative) Urine Nitrite (Negative) Urine Bilirubin (Negative) Urine Urobilinogen (<2.0) mg/dL Ur Leukocyte Esterase (Negative) Urine Opiates Screen (NotDetected) Ur Oxycodone Screen (NotDetected) Urine Methadone Screen (NotDetected) Ur Propoxyphene Screen (NotDetected) Ur Barbiturates Screen (NotDetected) U Tricyclic Antidepress (NotDetected) Ur Phencyclidine Scrn (NotDetected) Ur Amphetamines Screen (NotDetected) U Methamphetamines Scrn (NotDetected) U Benzodiazepines Scrn (NotDetected) Urine Cocaine Screen (NotDetected) U Marijuana (THC) Screen (NotDetected) Disposition Clinical Impression: Paresthesia, Near syncope Disposition: HOME SELF-CARE Condition: Good Instructions (If sedation given, give patient instructions): Paresthesia (ED), Near Syncope (ED) Additional Instructions: Increase fluids. Rest. Follow-up with her primary care physician for recheck in 1-2 days. Return to the emergency department for any new, worsening, or concerning symptoms. Is patient prescribed a controlled substance at d/c from ED?: No Referrals: None,Stated [Primary Care Provider] - 1-2 days Time of Disposition: 20:36
[2020-12-05 19:57] LABS: Amphetamine Screen,Urine Not Detected (NotDetected); Barbiturate Screen,Urine Not Detected (NotDetected); Benzodiazepines Screen,Urine Not Detected (NotDetected); Cocaine Screen,Urine Not Detected (NotDetected); Methadone Screen, Urine Not Detected (NotDetected); Opiate Screen,Urine Not Detected (NotDetected); Oxycodone Screen, Urine Not Detected (NotDetected); Phencyclidine Screen,Urine Not Detected (NotDetected); Tricyclic Antidepressant,Urine Not Detected (NotDetected); Urn Cannabinoid Scrn Not Detected (NotDetected)
[2020-12-05] MEDS ORDERED: LORazepam 1 MG TAB PO STA (20:35)
[2020-12-05 20:45] VITALS: BP 108/69; PULSE 71; RESP 22; TEMP 98
== END 2020-12-05 20:46 | disposition home or self-care (01) ==
LOC: EC 18:20
DX: R20.2 Paresthesia of skin (principal); R55 Syncope and collapse; R42 Dizziness and giddiness; R20.0 Anesthesia of skin; F17.290 Nicotine dependence, other tobacco product, uncomplicated; Z91.030 Bee allergy status
CPT/HCPCS: 36415; 80053; 80306; 81003; 83605; 84484; 85025; 93005; 96360; 99284

== ENCOUNTER 2021-04-12 16:21 | Emergency (ER) | payer OTHER ==
[2021-04-12] MEDS ORDERED: ACETAMINOPHEN TAB 500 MG TAB PO STA (16:59)
--- NOTE | 2021-04-12 17:00 | ED ---
General Adult HPI - General Stated complaint: fatigue,fever Time Seen by Provider: 04/12/21 16:40 Source: patient, RN notes reviewed Mode of arrival: ambulatory Limitations: no limitations - History of Present Illness Initial comments: 25 show male presents emergency dept chief complaint of fever fatigue body aches. Patient just feels very weak, run down. Patient states that they he has had no recent exposures. Denies any nausea vomiting diarrhea constipation about cough. No other complaints. - Related Data Allergies Allergy/AdvReac Type Severity Reaction Status Date / Time bee venom protein (honey bee) Allergy Anaphylaxis Verified 04/12/21 16:56 Review of Systems ROS Statement: Those systems with pertinent positive or pertinent negative responses have been documented in the HPI. ROS Other: All systems not noted in ROS Statement are negative. Past Medical History Past Medical History: No Reported History History of Any Multi-Drug Resistant Organisms: None Reported Past Surgical History: Adenoidectomy, Tonsillectomy Additional Past Surgical History / Comment(s): tubes in ears Past Anesthesia/Blood Transfusion Reactions: No Reported Reaction Past Psychological History: No Psychological Hx Reported Smoking Status: Current some day smoker, Vaper Past Alcohol Use History: Occasional Past Drug Use History: None Reported - Past Family History Mother Additional Family Medical History / Comment(s): anxiety, depression Father Family Medical History: Hypertension Sister(s) Family Medical History: No Reported History Son(s) Family Medical History: No Reported History General Exam Limitations: no limitations General appearance: alert, in no apparent distress Head exam: Present: atraumatic, normocephalic, normal inspection Eye exam: Present: normal appearance, PERRL, EOMI. Absent: scleral icterus, conjunctival injection, periorbital swelling ENT exam: Present: normal exam, normal oropharynx, mucous membranes moist Neck exam: Present: normal inspection, full ROM. Absent: tenderness, meningismus, lymphadenopathy Respiratory exam: Present: normal lung sounds bilaterally. Absent: respiratory distress, wheezes, rales, rhonchi, stridor Cardiovascular Exam: Present: regular rate, normal rhythm, normal heart sounds. Absent: systolic murmur, diastolic murmur, rubs, gallop, clicks GI/Abdominal exam: Present: soft, normal bowel sounds. Absent: distended, tenderness, guarding, rebound, rigid Neurological exam: Present: alert, oriented X3, CN II-XII intact Course Vital Signs 04/12/21 16:56 Temperature 100.7 F H Pulse Rate 92 Respiratory 18 Rate Blood Pressure 128/81 O2 Sat by Pulse 97 Oximetry Medical Decision Making - Medical Decision Making 25-year-old presented for fever, fatigue. Patient's covid 19 and influenza is negative. Patient is a viral infection patient will continue Tylenol Motrin return for any worsening change in symptoms. - Lab Data Lab Results 04/12/21 04/12/21 Range/Units 17:00 17:00 Coronavirus (PCR) Not Detected (Not Detectd) Influenza Type A RNA Not Detected (Not Detectd) Influenza Type B (PCR) Not Detected (Not Detectd) Disposition Clinical Impression: Fever, Viral infection Disposition: HOME SELF-CARE Condition: Stable Instructions (If sedation given, give patient instructions): Fever in Adults (ED) Additional Instructions: Please return to the Emergency Department if symptoms worsen or any other concerns. Is patient prescribed a controlled substance at d/c from ED?: No Referrals: None,Stated [Primary Care Provider] - 1-2 days Time of Disposition: 19:41
[2021-04-12 20:03] VITALS: BP 135/90; PULSE 84; RESP 16; TEMP 100.8
== END 2021-04-12 19:59 | disposition home or self-care (01) ==
LOC: EC 16:21
DX: B34.9 Viral infection, unspecified (principal); F17.290 Nicotine dependence, other tobacco product, uncomplicated; Z20.822 Contact with and (suspected) exposure to COVID-19; Z91.030 Bee allergy status
CPT/HCPCS: 87502; 87635; 99283

== ENCOUNTER 2022-04-16 14:02 | Observation (INO) | payer OTHER ==
[2022-04-16] MEDS ORDERED: SODIUM CHLORIDE 0.9% 1,000 ML IV STA (14:45)
--- NOTE | 2022-04-16 15:34 | XR ---
EXAMINATION TYPE: XR chest 2V DATE OF EXAM: 04/16/2022 3:28 PM COMPARISON: Chest radiographs from 11/09/2018 TECHNIQUE: XR chest 2V Frontal and lateral views of the chest. CLINICAL INDICATION:Male, 26 years old with history of syncope; FINDINGS: Lungs/Pleura: There is no evidence of pleural effusion, focal consolidation, or pneumothorax. Pulmonary vascularity: Unremarkable. Heart/mediastinum: Cardiomediastinal silhouette is unremarkable. Musculoskeletal: No acute osseous pathology. IMPRESSION: No acute cardiopulmonary disease/process.
--- NOTE | 2022-04-16 15:57 | ED ---
Chest Pain HPI - General Chief Complaint: Chest Pain Stated Complaint: chest pain Time Seen by Provider: 04/16/22 14:25 Source: patient, EMS, RN notes reviewed Mode of arrival: EMS Limitations: no limitations - History of Present Illness Initial Comments: Patient is a 26-year-old male presenting with chief complaint of syncope. Patient's mother and partner are at bedside. Patient's mother states that the patient was in his truck in her driveway, she looked out the window and he fell face forward out of the lumber driver's side door. Patient was unconscious. Mother called EMS, states that he was periodically in and out of consciousness while calling them. No loss of bowel or bladder control while unconscious. Patient admits to chest tightness at this time. Also admits to some difficulty breathing. He admits to full-body paresthesia. He admits to nasal congestion. No cough, fever, chills, sore throat, abdominal pain, vomiting, diarrhea, palpitations. - Related Data Home Medications Medication Instructions Recorded Confirmed No Known Home Medications 04/16/22 04/16/22 Allergies Allergy/AdvReac Type Severity Reaction Status Date / Time bee venom protein (honey bee) Allergy Anaphylaxis Verified 04/16/22 15:02 Review of Systems ROS Statement: Those systems with pertinent positive or pertinent negative responses have been documented in the HPI. ROS Other: All systems not noted in ROS Statement are negative. EKG Findings - EKG Comments: EKG Findings:: Sinus rhythm ventricular rate 82. PA interval 143. QRS 93. QT 367. QTc 406. No ST deviation or T-wave inversion. This EKG is interpreted by myself as well as my attending. Past Medical History Past Medical History: No Reported History History of Any Multi-Drug Resistant Organisms: None Reported Past Surgical History: Adenoidectomy, Tonsillectomy Additional Past Surgical History / Comment(s): tubes in ears Past Anesthesia/Blood Transfusion Reactions: No Reported Reaction Past Psychological History: Anxiety Smoking Status: Current some day smoker, Vaper Past Alcohol Use History: Occasional Past Drug Use History: None Reported - Past Family History Mother Additional Family Medical History / Comment(s): anxiety, depression Father Family Medical History: Hypertension Sister(s) Family Medical History: No Reported History Son(s) Family Medical History: No Reported History General Exam Limitations: no limitations General appearance: alert, in no apparent distress Head exam: Present: atraumatic, normocephalic, normal inspection Eye exam: Present: normal appearance Neck exam: Present: normal inspection Respiratory exam: Present: normal lung sounds bilaterally. Absent: respiratory distress, wheezes, rales, rhonchi, stridor Cardiovascular Exam: Present: regular rate, normal rhythm, normal heart sounds. Absent: systolic murmur, diastolic murmur, rubs, gallop, clicks Neurological exam: Present: alert, oriented X3, CN II-XII intact Psychiatric exam: Present: normal affect, normal mood Skin exam: Present: warm, dry, intact, normal color. Absent: rash Course Vital Signs 04/16/22 14:05 Temperature 98.6 F Pulse Rate 87 Respiratory 24 Rate Blood Pressure 120/84 O2 Sat by Pulse 100 Oximetry Chest Pain MDM - MDM Was pt. sent in by a medical professional or institution ([facility], [facility], urgent care, hospital, or group home...) When possible be specific @ -[No] Did you speak to anyone other than the patient for history (EMS, parent, family, police, friend...)? What history was obtained from this source @ -Mother and partner Did you review nursing and triage notes (agree or disagree)? Why? @ -[I reviewed and agree with nursing and triage notes] Were old charts reviewed (outside hosp., previous admission, EMS record, old EKG, old radiological studies, urgent care reports/EKG's, group home records)? Report findings @ -[No old charts were reviewed] Differential Diagnosis (chest pain, altered mental status, abdominal pain women, abdominal pain men, vaginal bleeding, weakness, fever, dyspnea, syncope, headache, dizziness, GI bleed, back pain, seizure, CVA, palpatations, mental health)? @ -MDM Differential Syncope: Valvular disease, hypertrophic cardiomyopathy, pulmonary embolism, tamponade, tachycardia, bradycardia, [place], hypovolemia, hemorrhage, dissection, anemia, intracranial hemorrhage, seizure, hypoglycemia, carbon monoxide poisoning this is not meant to be an all-inclusive list. EKG interpreted by me (3pts min.). @ -Sinus rhythm, no ischemic changes X-rays interpreted by me (1pt min.). @ -Yes, no acute process. CT interpreted by me (1pt min.). @ -no, Radiologist's report is reviewed. No acute intracranial process or evidence of fracture U/S interpreted by me (1pt. min.). @ -[None done] What testing was considered but not performed or refused? (CT, X-rays, U/S, labs)? Why? @ -[None] What meds were considered but not given or refused? Why? @ -[None] Did you discuss the management of the patient with other professionals (professionals i.e. , PA, [facility], lab, RT, psych nurse, addiction social worker, elect equip maint eng, teacher, chemical instrumentation officer, employment evaluator/case manager)? Give summary @ -[No] Was smoking cessation discussed for >3mins.? @ -[No] Was critical care preformed (if so, how long)? @ -[No] Were there social determinants of health that impacted care today? How? (Homelessness, low income, unemployed, alcoholism, drug addiction, transportation, low edu. Level, literacy, decrease access to med. care, senior living, rehab)? @ -[No] Was there de-escalation of care discussed even if they declined (Discuss DNR or withdrawal of care, Hospice)? DNR status @ -[No] What co-morbidities impacted this encounter? (DM, HTN, Smoking, COPD, CAD, Cancer, CVA, ARF, Chemo, Hep., AIDS, mental health diagnosis, sleep apnea, morbid obesity)? @ -[None] Was patient admitted / discharged? Hospital course, mention meds given and route, prescriptions, significant lab abnormalities, going to OR and other pertinent info. @ -Patient is a 26-year-old male who had a syncopal episode today and is complaining of chest pain and generalized paresthesias. On physical examination heart and lungs are clear to auscultation and there are no focal neurological deficits. Lab work shows no leukocytosis or anemia. D-dimer is less than 0.17 and troponin is less than 0.012. Electrolytes are WNL. Urine shows 1+ ketones, may be due to dehydration, patient is receiving fluids. Urine toxicology is negative. Patient is negative for influenza, RSV, Covid. CT of the brain and cervical spine as well as chest x-ray showed no acute process. Patient requires cardiology evaluation to rule out cardiac causes of syncope at this time. Patient does not have a PCP and has no way of arranging this in the outpatient setting at this time. Case management is unavailable at this time. Patient will require admission. I spoke with Dr. Badillo from [facility] who accepted the patient. Patient is agreeable with this plan. I discussed this case with my attending Dr. Kerr. Undiagnosed new problem with uncertain prognosis? @ -[No] Drug Therapy requiring intensive monitoring for toxicity (Heparin, Nitro, Insulin, Cardizem)? @ -[No] Were any procedures done? @ -[No] Diagnosis/symptom? @ -Syncope Acute, or Chronic, or Acute on Chronic? @ -Acute Uncomplicated (without systemic symptoms) or Complicated (systemic symptoms)? @ -Complicated Side effects of treatment? @ -[No] Exacerbation, Progression, or Severe Exacerbation? @ -[No] Poses a threat to life or bodily function? How? (Chest pain, [place], [place], pneumonia, PE, COPD, DKA, ARF, appy, cholecystitis, CVA, Diverticulitis, Homicidal, Suicidal, threat to staff... and all critical care pts) @ -[No] Disposition Clinical Impression: Syncope, Chest pain Disposition: ADMITTED IP TO THIS [facility] Condition: Fair Time of Disposition: 18:00 Decision to Admit Reason: Admit from EC Decision Date: 04/16/22 Decision Time: 18:00
[2022-04-16 16:07] LABS: Basophils # (A) 0.1 k/uL (0-0.2); Basophils % (A) 1 %; Eosinophils # (A) 0.1 k/uL (0-0.7); Eosinophils % (A) 1 %; HCT 37.2 % (39.0-53.0); HGB 13.5 gm/dL (13.0-17.5); Lymphocytes # (A) 1.6 k/uL (1.0-4.8); Lymphocytes % (A) 21 %; MCH 29.8 pg (25.0-35.0); MCHC 36.2 g/dL (31.0-37.0); MCV 82.3 fL (80.0-100.0); Mean Platelet Volume 10.8; Monocytes # (A) 0.4 k/uL (0-1.0); Monocytes % (A) 6 %; Neutrophils % (A) 69 %; Platelet Count 180 k/uL (150-450); RBC 4.52 m/uL (4.30-5.90); RDW 12.7 % (11.5-15.5); WBC 7.3 k/uL (3.8-10.6)
--- NOTE | 2022-04-16 16:11 | CT ---
EXAMINATION TYPE: CT brain cspine wo con CT DLP: 1462.3 mGycm, Automated exposure control for dose reduction was used. DATE OF EXAM: 04/16/2022 3:46 PM COMPARISON: None.. CLINICAL INDICATION:Male, 26 years old with history of syncope; TECHNIQUE: Brain: Multiple axial CT images of the brain were obtained without IV contrast. Cspine: Axial CT images from the skull base to the inferior aspect of T2 we obtained without intraven ous contrast. Coronal and sagittal reformatted images were also reviewed. FINDINGS: Brain: Extra-axial spaces: No abnormal extra-axial fluid collections. Ventricular system: Within normal limits Cerebral parenchyma: No acute intraparenchymal hemorrhage or mass effect. The ac-white junction is well differentiated. Cerebellum: Unremarkable. Mass effect: No evidence of midline shift. Intracranial vasculature: unremarkable Soft tissues: Normal. Calvarium/osseous structures: No depressed skull fracture. Paranasal sinuses and mastoid air cells: Clear. Visualized orbits: Orbital contents are intact. Cervical spine: Fracture: None. Osseous structures: Unremarkable Vertebral alignment: Within normal limits. Spinal canal/Neural Foramina: No evidence of significant spinal canal narrowing. No evidence for sign ificant neural foraminal stenosis. Neck soft tissues: Prevertebral soft tissues are within normal limits. Other: The airway is patent. The lung apices are clear. IMPRESSION: 1. No acute intracranial process. 2. No evidence of cervical spine fracture.
[2022-04-16 16:18] LABS: ALT 16 U/L (4-49); AST 21 U/L (17-59); African American GFR (CKD) >90 (>60 ml/min/1.73 sqM); Albumin 4.2 g/dL (3.5-5.0); Alkaline Phosphatase 41 U/L (38-126); Anion Gap 10 mmol/L; Blood Urea Nitrogen 11 mg/dL (9-20); Calcium 8.4 mg/dL (8.4-10.2); Carbon Dioxide 22 mmol/L (22-30); Chloride 105 mmol/L (98-107); Glucose 75 mg/dL (74-99); Non-African American GFR(CKD) >90 (>60 ml/min/1.73 sqM); Potassium 3.8 mmol/L (3.5-5.1); Sodium 137 mmol/L (137-145); Total Bilirubin 1.1 mg/dL (0.2-1.3); Total Protein 6.8 g/dL (6.3-8.2)
[2022-04-16 16:22] LABS: Appearance,Urine Clear (Clear); Bilirubin,Urine Negative (Negative); Blood,Urine Negative (Negative); Color,Urine Light Yellow; Glucose,Urine (UA) Negative (Negative); Ketones,Urine 1+ (Negative); Leukocyte Esterase,Urine Negative (Negative); Nitrite,Urine Negative (Negative); Protein,Urine Negative (Negative); Specific Gravity,Urine 1.006 (1.001-1.035); Urobilinogen,Urine <2.0 mg/dL (<2.0)
[2022-04-16 16:28] LABS: INR 1.1 (<1.2); Prothrombin Time 11.8 sec (9.0-12.0)
[2022-04-16 16:31] LABS: Partial Thromboplastin Time 21.4 sec (22.0-30.0)
[2022-04-16 16:35] LABS: Amphetamine Screen,Urine Not Detected (NotDetected); Barbiturate Screen,Urine Not Detected (NotDetected); Benzodiazepines Screen,Urine Not Detected (NotDetected); Cocaine Screen,Urine Not Detected (NotDetected); Methadone Screen, Urine Not Detected (NotDetected); Opiate Screen,Urine Not Detected (NotDetected); Oxycodone Screen, Urine Not Detected (NotDetected); Phencyclidine Screen,Urine Not Detected (NotDetected); Tricyclic Antidepressant,Urine Not Detected (NotDetected); Urn Cannabinoid Scrn Not Detected (NotDetected)
[2022-04-16] MEDS ORDERED: NALOXONE 0.4 MG/ML 1 ML VIAL IV PRN (17:59)
[2022-04-16] MEDS ORDERED: KETOROLAC 15 MG/ML 1 ML VIAL IVP PRN (17:59)
--- NOTE | 2022-04-16 18:35 | P.HPIM ---
History of Present Illness H&P Date: 04/16/22 Patient is a 26-year-old male with no significant past medical history presenting with syncope and collapse. Patient was in his truck and her mother's driveway. Mother had looked outside the window, and noticed that he fell face forward out of the trailer driver's side door. Patient was briefly unconscious. Mother called EMS at that point. Patient did not have any loss of bowel or bladder control. Patient continues to complain of some chest tightness, and difficulty breathing. The chest tightness can occasionally get up to 8/10, and is across his chest. He also complained of full body paresthesias, which has now resolved. He denies any new cough, fevers, chills, abdominal pain, nausea, vomiting, diarrhea, constipation, or urinary complaints. He vapes daily, denies any alcohol or illicit drug use. In the ED, vitals signs have been within normal limits. He has no significant lab abnormalities. Head CT, cervical spine did not show any acute process or fractures. Chest x-ray was again normal limits. EKG showed sinus rhythm. Patient seen and examined at bedside. [] Pertinent positives and negatives as discussed in HPI, a complete review of systems was performed and all other systems are negative. Vital signs reviewed General: nontoxic, no distress, appears at stated age Derm: warm, dry Head: atraumatic, normocephalic, symmetric Eyes: EOMI, no lid lag, anicteric sclera, pupils equal round reactive to light ENT: Nose and ears atraumatic Neck: No thyromegaly, supple Mouth: no lip lesion, mucus membranes moist Cardiovascular: S1S2 reg, no murmur, no edema Lungs: clear to auscultation bilateral, no rhonchi, no rales, no wheeze, no accessory muscle use Abdominal: soft, nontender to palpation, no guarding, no appreciable organomegaly Ext: no gross muscle atrophy, muscle strength muscle strength 5 out of 5 in all 4 extremities, no contractures Neuro: CN II-XII grossly intact Psych: Alert, oriented, appropriate affect Assessment/Plan: Syncope and collapse Chest pain Acute shortness of breath -Likely vasovagal -Telemetry -Echocardiogram -Orthostatics pending, although patient already received IV fluids The patient is admitted with an anticipated less than 2 midnight stay for evaluation of syncope. Surrogate decision-maker: Spouse CODE STATUS: Full code DVT prophylaxis: Patient ambulatory Anticipated discharge date: Likely tomorrow Anticipated discharge place: Home A total of [] minutes was spent on the care of this complex patient more than 50% of the time was spent in counseling and care coordination. Past Medical History Past Medical History: No Reported History History of Any Multi-Drug Resistant Organisms: None Reported Past Surgical History: Adenoidectomy, Tonsillectomy Additional Past Surgical History / Comment(s): tubes in ears Past Anesthesia/Blood Transfusion Reactions: No Reported Reaction Past Psychological History: Anxiety Smoking Status: Current some day smoker, Vaper Past Alcohol Use History: Occasional Past Drug Use History: None Reported - Past Family History Mother Additional Family Medical History / Comment(s): anxiety, depression Father Family Medical History: Hypertension Sister(s) Family Medical History: No Reported History Son(s) Family Medical History: No Reported History Medications and Allergies Home Medications Medication Instructions Recorded Confirmed Type No Known Home Medications 04/16/22 04/16/22 History Allergies Allergy/AdvReac Type Severity Reaction Status Date / Time bee venom protein (honey bee) Allergy Anaphylaxis Verified 04/16/22 15:02 Physical Exam Vitals: Vital Signs Temp Pulse Resp BP Pulse Ox 04/16/22 14:05 98.6 F 87 24 120/84 100 Intake and Output 04/16/22 04/16/22 04/16/22 06:59 14:59 22:59 Other: Weight 72.575 kg Results CBC & Chem 7: 04/16/22 15:55 04/16/22 15:55 Labs: Abnormal Lab Results - Last 24 Hours (Table) 04/16/22 04/16/22 04/16/22 Range/Units 15:55 15:55 16:00 Hct 37.2 L (39.0-53.0) % APTT 21.4 L (22.0-30.0) sec Urine Ketones 1+ H (Negative)
[2022-04-16] MEDS: SODIUM CHLORIDE 0.9% 1,000 ML IV SCH (19:02)
[2022-04-17] MEDS: SODIUM CHLORIDE 0.9% 1,000 ML IV SCH (06:40)
[2022-04-17 07:32] VITALS: RESP 15
[2022-04-17 14:05] VITALS: BP 134/84; PULSE 76; TEMP 97.9
--- NOTE | 2022-04-17 15:12 | P.PN ---
Subjective Progress Note Date: 04/17/22 Subjective: Patient seen and examined at bedside. No acute events overnight. He claims that he still has minimal chest pain and shortness of breath. He denies any significant palpitations, lightheadedness, episodes of passing out. Pertinent positives and negatives as discussed above, a complete review of systems was performed and all other systems are negative. Vitals Signs Reviewed. General: nontoxic, no distress, appears at stated age Derm: warm, dry Head: atraumatic, normocephalic, symmetric Eyes: EOMI, no lid lag, anicteric sclera, pupils equal round reactive to light ENT: Nose and ears atraumatic Neck: No thyromegaly, supple Mouth: no lip lesion, mucus membranes moist Cardiovascular: S1S2 reg, no murmur, no edema, has chest wall tenderness to pal pation Lungs: clear to auscultation bilateral, no rhonchi, no rales, no wheeze, no accessory muscle use Abdominal: soft, nontender to palpation, no guarding, no appreciable organomegaly Ext: no gross muscle atrophy, muscle strength muscle strength 5 out of 5 in all 4 extremities, no contractures Neuro: CN II-XII grossly intact Psych: Alert, oriented, appropriate affect Assessment and Plan: Syncope and collapse Chest pain Acute shortness of breath -Syncope possibly vasovagal -Vision has chest wall tenderness, chest pain to be secondary to the -Telemetry -Echocardiogram -Orthostatics negative -Cardiology consulted, pending final recommendations DVT ppx: Subcu heparin Code status: Full code Anticipated discharge place: Home Anticipated discharge time: Today or tomorrow, pending cardiology recommendations Objective - Vital Signs Vital signs: Vital Signs Temp 97.9 F 04/17/22 14:05 Pulse 76 04/17/22 14:05 Resp 15 04/17/22 14:05 BP 134/84 04/17/22 14:05 Pulse Ox 100 04/17/22 14:05 FiO2 Intake & Output 04/16/22 04/17/22 04/17/22 18:59 06:59 18:59 Weight 72.575 kg 72.575 kg Other: Voiding Method Toilet # Voids 3 1 - Labs CBC & Chem 7: 04/16/22 15:55 04/16/22 15:55 Labs: Abnormal Lab Results - Last 24 Hours (Table) 04/16/22 04/16/22 04/16/22 Range/Units 15:55 15:55 16:00 Hct 37.2 L (39.0-53.0) % APTT 21.4 L (22.0-30.0) sec Urine Ketones 1+ H (Negative)
--- NOTE | 2022-04-17 16:05 | P.CRDCN ---
History of Present Illness Consult date: 04/17/22 Consult reason: sycope History of present illness: The patient is a 26-year-old male who presented to the hospital after syncopal episode. The patient had been feeling unwell at work earlier that day. He had been dizzy, lightheaded, and nauseous. He had left work and drove to his mother's house, where he "blacked out" getting out of his car, falling on the ground. He states he had been having some abdominal discomfort just prior. He denies any fever or chills. No recent infection or diarrhea. He states he has no history of dizzy spells or syncope. He states he typically drinks a large amount of coffee throughout the day, as well as water. He is unsure if he had eaten earlier that day, but it is likely that he had a single granola bar. His syncopal spell happened around 1 PM. DIAGNOSTICS: EKG shows sinus mechanism without ST or T-wave abnormalities Chest x-ray shows no acute cardiopulmonary process CT of the head and cervical spine showed no acute process Lab data: WBC 7.3, hemoglobin 13.5, hematocrit 37.2, platelet 180, sodium 137, potassium 3.8, BUN 11, creatinine 0.95, troponins negative 2, AST 21, ALT 16, drug screen negative PAST MEDICAL HISTORY: Current smoker REVIEW OF SYSTEMS: No fever or chills. No cough or expectoration. No diaphoresis. Patient denies headache, dizziness, blurred vision, double vision. Patient denies any stomach discomfort. No nausea, vomiting. No hematochezia. No hematemesis. Denies any black stools or blood in his stools. Denies dysuria or hematuria. No muscle weakness or numbness. No current chest pain or chest pressure. No dyspnea or orthopnea. PHYSICAL EXAMINATION: This is a 26-year-old male in no apparent distress at the time of my examination. HEENT: Head is atraumatic, normocephalic. Pupils are equal, round. Sclerae anicteric. Conjunctivae are clear. Mucous membranes of the mouth are moist. Neck is supple. There is no jugular venous distention. No carotid bruit is heard. CHEST EXAMINATION: Lungs are clear to auscultation. No chest wall tenderness is noted on palpation or with deep breathing. HEART EXAMINATION: Heart regular rate and rhythm. S1, S2 heard. No murmurs, gallops or rub. ABDOMEN: Soft, nontender. Bowel sounds are heard. No organomegaly noted. EXTREMITIES: 2+ peripheral pulses with no evidence of peripheral edema and no calf tenderness noted. NEUROLOGIC EXAMINATION: Patient is awake, alert and oriented x3. FINAL ASSESSMENT AND PLAN: Syncope and collapse, likely secondary to dehydration or vasovagal History of smoking PLAN: Patient may be discharged from the cardiac standpoint Exercise stress testing to be completed outpatient I am dictating on behalf of Dr Herber Rivera's history/physical and assessment/plan. Past Medical History Past Medical History: No Reported History History of Any Multi-Drug Resistant Organisms: None Reported Past Surgical History: Adenoidectomy, Tonsillectomy Additional Past Surgical History / Comment(s): tubes in ears Past Anesthesia/Blood Transfusion Reactions: No Reported Reaction Past Psychological History: Anxiety Smoking Status: Current some day smoker, Vaper Past Alcohol Use History: Occasional Past Drug Use History: None Reported - Past Family History Mother Additional Family Medical History / Comment(s): anxiety, depression Father Family Medical History: Hypertension Sister(s) Family Medical History: No Reported History Son(s) Family Medical History: No Reported History Medications and Allergies Home Medications Medication Instructions Recorded Confirmed Type No Known Home Medications 04/16/22 04/16/22 History Allergies Allergy/AdvReac Type Severity Reaction Status Date / Time bee venom protein (honey bee) Allergy Anaphylaxis Verified 04/16/22 15:02 Physical Exam Vitals: Vital Signs Temp Pulse Pulse Pulse Pulse Pulse Resp 04/17/22 07:00 97.7 F 58 L 15 04/17/22 01:48 97.6 F 68 16 04/16/22 22:54 80 92 80 04/16/22 22:40 98.1 F 80 17 04/16/22 22:12 82 16 04/16/22 14:05 98.6 F 87 24 BP BP BP BP BP BP Pulse Ox 04/17/22 07:00 109/69 100 04/17/22 01:48 109/67 99 04/16/22 22:54 120/75 109/69 116/72 99 04/16/22 22:40 116/72 99 04/16/22 22:12 124/67 100 04/16/22 14:05 120/84 100 Intake and Output 04/16/22 04/17/22 04/17/22 22:59 06:59 14:59 Other: Voiding Method Toilet # Voids 3 Weight 72.575 kg Results 04/16/22 15:55 04/16/22 15:55 Cardiac Enzymes 04/16/22 04/16/22 Range/Units 15:55 15:55 AST 21 (17-59) U/L Troponin I <0.012 (0.000-0.034) ng/mL Coagulation 04/16/22 Range/Units 15:55 PT 11.8 (9.0-12.0) sec APTT 21.4 L (22.0-30.0) sec CBC 04/16/22 Range/Units 15:55 WBC 7.3 (3.8-10.6) k/uL RBC 4.52 (4.30-5.90) m/uL Hgb 13.5 (13.0-17.5) gm/dL Hct 37.2 L (39.0-53.0) % Plt Count 180 (150-450) k/uL Comprehensive Metabolic Panel 04/16/22 Range/Units 15:55 Sodium 137 (137-145) mmol/L Potassium 3.8 (3.5-5.1) mmol/L Chloride 105 (98-107) mmol/L Carbon Dioxide 22 (22-30) mmol/L BUN 11 (9-20) mg/dL Creatinine 0.95 (0.66-1.25) mg/dL Glucose 75 (74-99) mg/dL Calcium 8.4 (8.4-10.2) mg/dL AST 21 (17-59) U/L ALT 16 (4-49) U/L Alkaline Phosphatase 41 (38-126) U/L Total Protein 6.8 (6.3-8.2) g/dL Albumin 4.2 (3.5-5.0) g/dL Current Medications Generic Name Dose Route Start Last Admin Trade Name Freq PRN Reason Stop Dose Admin Sodium Chloride 1,000 mls @ 75 mls/hr 04/16/22 18:00 04/17/22 06:40 Saline 0.9% IV 75 mls/hr .[id number] MITALI Administration Ketorolac Tromethamine 15 mg 04/16/22 17:59 04/16/22 22:59 Ketorolac 15 Mg/Ml 1 Ml Vial IVP 04/19/22 18:00 15 mg Q6HR PRN Administration Moderate Pain (Scale 4 to 6) Naloxone HCl 0.2 mg 04/16/22 17:59 Naloxone 0.4 Mg/Ml 1 Ml Vial IV Q2M PRN Opioid Reversal Intake and Output 04/16/22 04/17/22 04/17/22 22:59 06:59 14:59 Other: Voiding Method Toilet # Voids 3 Weight 72.575 kg 04/16/22 15:55 04/16/22 15:55
--- NOTE | 2022-04-17 16:10 | P.DS ---
Providers Date of admission: 04/16/22 17:59 Expected date of discharge: 04/17/22 Attending physician: Cachorro Badillo MD Consults: 04/16/22 17:59 Consult Physician Urgent Consulting Provider: [facility] Consult Reason/Comments: syncope Do you want consulting provider notified?: Yes Primary care physician: Stated None Hospital Course: Discharge Diagnosis: Syncope and collapse Chest pain Acute shortness of breath Hospital Course: 26-year-old male with no significant past medical history presenting with syncope and collapse and chest pain. In the ED, vitals signs have been within normal limits. He has no significant lab abnormalities. Head CT, cervical spine did not show any acute process or fractures. Chest x-ray was again normal limits. EKG showed sinus rhythm. Cardiology consulted. Troponin negative. Cardiology recommending outpatient stress test. Syncope likely in the setting of dehydration and vasovagal. Patient seen and examined at bedside. Vital signs reviewed and stable. General: nontoxic, no distress, appears at stated age Derm: warm, dry Head: atraumatic, normocephalic, symmetric Eyes: EOMI, no lid lag, anicteric sclera Mouth: no lip lesion, mucus membranes moist Cardiovascular: S1S2 reg, no murmur Lungs: CTA bilateral, no rhonchi, no rales , no accessory muscle use Abdominal: soft, nontender to palpation, no guarding, no appreciable organomegaly Ext: no gross muscle atrophy, no edema, no contractures Neuro: CN II-XI grossly intact, no focal neuro deficits Psych: Alert, oriented, appropriate affect A total of 33 minutes of time were spent preparing this complex discharge summary. Patient was discharged on 04/17/22 at 16:09. Patient Condition at Discharge: Stable Plan - Discharge Summary Discharge Rx Participant: No New Discharge Prescriptions: No Action No Known Home Medications Discharge Medication List No Known Home Medications 04/16/22 [History] Follow up Appointment(s)/Referral(s): None,Stated [Primary Care Provider] - 1-2 days Johnny Brown DO [STAFF PHYSICIAN] - 1 Week Activity/Diet/Wound Care/Special Instructions: Please see your PCP as soon as possible. Please see cardiology in 1-2 weeks for a stress test. Discharge Disposition: HOME SELF-CARE
== END 2022-04-17 16:32 | disposition home or self-care (01) ==
LOC: EC 14:02 → 6NMEDSUR 17:59
PROVIDERS: ADMIT Student in an Organized Health Care Education/Training Program; ATTEND Student in an Organized Health Care Education/Training Program
DX: R55 Syncope and collapse (principal); R07.89 Other chest pain; R06.02 Shortness of breath; R11.0 Nausea; R09.81 Nasal congestion; R20.2 Paresthesia of skin; R42 Dizziness and giddiness; F41.9 Anxiety disorder, unspecified; F17.290 Nicotine dependence, other tobacco product, uncomplicated; Z91.030 Bee allergy status; Z98.890 Other specified postprocedural states; Z82.49 Family history of ischemic heart disease and other diseases of the circulatory system; Z81.8 Family history of other mental and behavioral disorders
CPT/HCPCS: 96361 ×2; 96374; 99285; 36415; 93005; 85379; 80053; 83735; 84484 ×2; 85025; 85610; 85730; 81003; 80306; 87636; 71046; 72125; 70450; G0378 ×2; J1885

== ENCOUNTER 2023-04-21 00:42 | Emergency (ER) | payer OTHER ==
[2023-04-21 01:11] VITALS: RESP 18; TEMP 97.9
[2023-04-21] MEDS ORDERED: PROPARACAINE 0.5% OPHTH DROPS 15 ML BTL RIGHT EYE STA (01:21)
[2023-04-21] MEDS ORDERED: FLUORESCEIN STRIPS 1 MG STRIP RIGHT EYE ONE (01:21)
[2023-04-21] MEDS ORDERED: TOBRAMYCIN 0.3% OPHTH DROPS 5 ML BTL RIGHT EYE STA (01:55)
--- NOTE | 2023-04-21 01:56 | ED ---
Eye Problem HPI - General Chief complaint: Eye Problems Stated complaint: [facility] Eye injury Time Seen by Provider: 04/21/23 01:03 Source: patient Mode of arrival: ambulatory Limitations: no limitations - History of Present Illness Initial comments: 28-year-old male presenting to the ED with a chief complaint of eye problem. 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 States earlier today felt a piece of metal go into his eye. States despite flushing his eye out with water still has foreign body sensation to his right eye puffy presentation to the ED for further evaluation. Denies any changes in vision or loss of vision. Tetanus status up-to-date. No other complaints. - Related Data Home Medications Medication Instructions Recorded Confirmed No Known Home Medications 04/16/22 04/16/22 Allergies Allergy/AdvReac Type Severity Reaction Status Date / Time bee venom protein (honey bee) Allergy Anaphylaxis Verified 04/21/23 00:55 Review of Systems ROS Statement: Those systems with pertinent positive or pertinent negative responses have been documented in the HPI. ROS Other: All systems not noted in ROS Statement are negative. Past Medical History Past Medical History: No Reported History History of Any Multi-Drug Resistant Organisms: None Reported Past Surgical History: Adenoidectomy, Tonsillectomy Additional Past Surgical History / Comment(s): tubes in ears Past Anesthesia/Blood Transfusion Reactions: No Reported Reaction Past Psychological History: Anxiety Smoking Status: Vaper Past Alcohol Use History: Occasional Past Drug Use History: None Reported - Past Family History Mother Additional Family Medical History / Comment(s): anxiety, depression Father Family Medical History: Hypertension Sister(s) Family Medical History: No Reported History Son(s) Family Medical History: No Reported History General Exam Limitations: no limitations General appearance: alert, in no apparent distress Eye exam: Present: normal appearance, other (Fluorescein exam shows corneal abrasion. No foreign body identified.) Respiratory exam: Present: normal lung sounds bilaterally Cardiovascular Exam: Present: regular rate, normal rhythm GI/Abdominal exam: Present: soft Neurological exam: Present: alert, oriented X3 Skin exam: Present: warm, dry Course Vital Signs 04/21/23 00:52 Temperature 97.9 F Pulse Rate 68 Respiratory 18 Rate Blood Pressure 122/80 O2 Sat by Pulse 98 Oximetry Medical Decision Making - Medical Decision Making Was pt. sent in by a medical professional or institution (Dr., PA, HANDS ASSEMBLER, urgent care, hospital, or long-term...) When possible be specific @ -No Did you speak to anyone other than the patient for history (EMS, parent, family, police, friend...)? What history was obtained from this source @ -No Did you review nursing and triage notes (agree or disagree)? Why? @ -I reviewed and agree with nursing and triage notes Were old charts reviewed (outside hosp., previous admission, EMS record, old EKG, old radiological studies, urgent care reports/EKG's, long-term records)? Report findings @ -No old charts were reviewed Differential Diagnosis (chest pain, altered mental status, abdominal pain women, abdominal pain men, vaginal bleeding, weakness, fever, dyspnea, syncope, headache, dizziness, GI bleed, back pain, seizure, CVA, palpatations, mental health, musculoskeletal)? @ -Corneal laceration, corneal abrasion, hyphema. This is not meant to be an all-inclusive list. EKG interpreted by me (3pts min.). @ -None X-rays interpreted by me (1pt min.). @ -None done CT interpreted by me (1pt min.). @ -None done U/S interpreted by me (1pt. min.). @ -None done What testing was considered but not performed or refused? (CT, X-rays, U/S, labs)? Why? @ -None What meds were considered but not given or refused? Why? @ -None Did you discuss the management of the patient with other professionals (professionals i.e. LG Aguirre, HANDS ASSEMBLER, lab, RT, psych nurse, web content & social media manager, acquisition specialist, teacher, loan officer assistant, case mgr)? Give summary @ -No Was smoking cessation discussed for >3mins.? @ -No Was critical care preformed (if so, how long)? @ -No Were there social determinants of health that impacted care today? How? (Homelessness, low income, unemployed, alcoholism, drug addiction, transportation, low edu. Level, literacy, decrease access to med. care, long term, rehab)? @ -No Was there de-escalation of care discussed even if they declined (Discuss DNR or withdrawal of care, Hospice)? DNR status @ -No What co-morbidities impacted this encounter? (DM, HTN, Smoking, COPD, CAD, Cancer, CVA, ARF, Chemo, Hep., AIDS, mental health diagnosis, sleep apnea, morbid obesity)? @ -None Was patient admitted / discharged? Hospital course, mention meds given and route, prescriptions, significant lab abnormalities, going to OR and other pertinent info. @ -Discharge A 28-year-old male presenting to the ED with chief complaint of eye problem. Fluorescein exam shows corneal abrasion. No foreign bodies identified. Visual acuity intact with no loss of vision. Provided tobramycin eyedrops here in the ED. Discharged home in stable condition. Discussed strict return precautions with patient who verbalizes agreement. Undiagnosed new problem with uncertain prognosis? @ -No Drug Therapy requiring intensive monitoring for toxicity (Heparin, Nitro, Insulin, Cardizem)? @ -No Were any procedures done? @ -No Diagnosis/symptom? @ -Corneal abrasion Acute, or Chronic, or Acute on Chronic? @ -Acute Uncomplicated (without systemic symptoms) or Complicated (systemic symptoms)? @ -Uncomplicated Side effects of treatment? @ -No Exacerbation, Progression, or Severe Exacerbation? @ -No Poses a threat to life or bodily function? How? (Chest pain, [place], [place], pneumonia, PE, COPD, DKA, ARF, appy, cholecystitis, CVA, Diverticulitis, Homicidal, Suicidal, threat to staff... and all critical care pts) @ -No Disposition Clinical Impression: Corneal abrasion Disposition: HOME SELF-CARE Condition: Good Instructions (If sedation given, give patient instructions): Corneal Abrasion (ED) Additional Instructions: Please return to the Emergency Department if symptoms worsen or any other concerns. Please follow up with your PCP. 2 eyedrops into the eye every 4 hours for the next 5-7 days. Is patient prescribed a controlled substance at d/c from ED?: No Referrals: None,Stated [Primary Care Provider] - 1-2 days Time of Disposition: 02:20
[2023-04-21 02:45] VITALS: BP 120/74; PULSE 70
== END 2023-04-21 02:30 | disposition home or self-care (01) ==
LOC: EC 00:42
DX: S05.01XA Injury of conjunctiva and corneal abrasion without foreign body, right eye, initial encounter (principal); F17.290 Nicotine dependence, other tobacco product, uncomplicated; Z86.59 Personal history of other mental and behavioral disorders; Z91.030 Bee allergy status; X58.XXXA Exposure to other specified factors, initial encounter
CPT/HCPCS: 99283

== ENCOUNTER 2023-05-24 20:02 | Emergency (ER) | payer BC ==
[2023-05-24 20:20] VITALS: RESP 18
--- NOTE | 2023-05-24 21:15 | XR ---
EXAMINATION TYPE: XR chest 2V DATE OF EXAM: 05/24/2023 COMPARISON: 04/16/2022 HISTORY: 28-year-old male with chest pain TECHNIQUE: PA and lateral views FINDINGS: The cardiomediastinal silhouette, aorta, and pulmonary vasculature are within normal limits. Lungs an d pleural spaces are clear. IMPRESSION: No acute cardiopulmonary process.
[2023-05-24 22:10] LABS: Basophils # (A) 0.1 k/uL (0-0.2); Basophils % (A) 1 %; Eosinophils # (A) 0.1 k/uL (0-0.7); Eosinophils % (A) 1 %; HCT 43.1 % (39.0-53.0); HGB 14.6 gm/dL (13.0-17.5); Lymphocytes % (A) 18 %; MCH 29.5 pg (25.0-35.0); MCHC 33.8 g/dL (31.0-37.0); MCV 87.2 fL (80.0-100.0); Mean Platelet Volume 10.4; Monocytes # (A) 0.5 k/uL (0-1.0); Monocytes % (A) 4 %; Neutrophils # (A) 8.1 k/uL (1.3-7.7); Neutrophils % (A) 75 %; Platelet Count 243 k/uL (150-450); RBC 4.95 m/uL (4.30-5.90); RDW 13.1 % (11.5-15.5); WBC 10.8 k/uL (3.8-10.6)
[2023-05-24 22:19] LABS: ALT 24 U/L (4-49); AST 33 U/L (17-59); African American GFR (CKD) >90 (>60 ml/min/1.73 sqM); Albumin 5.1 g/dL (3.5-5.0); Alkaline Phosphatase 55 U/L (38-126); Anion Gap 10 mmol/L; Blood Urea Nitrogen 15 mg/dL (9-20); Calcium 10.7 mg/dL (8.4-10.2); Carbon Dioxide 22 mmol/L (22-30); Chloride 108 mmol/L (98-107); Glucose 91 mg/dL (74-99); Non-African American GFR(CKD) >90 (>60 ml/min/1.73 sqM); Sodium 140 mmol/L (137-145); Total Bilirubin 0.9 mg/dL (0.2-1.3); Total Protein 8.4 g/dL (6.3-8.2)
[2023-05-24 22:29] LABS: Prothrombin Time 10.8 sec (10.0-12.5)
--- NOTE | 2023-05-25 | ED ---
Dizziness HPI - General Chief Complaint: Dizziness Stated Complaint: chest pain dizzy numbness Source: patient Mode of arrival: ambulatory Limitations: no limitations - History of Present Illness Initial Comments: 28-year-old male presenting to the ED with a chief complaint of chest pain. Patient states earlier today while at work started to experience some pain to the left side of his chest. Also notes that he started to feel his heart racing and felt lightheaded for a little bit. At this time, reports lightheadedness and palpitations have resolved however does note some chest pain however improved from prior. Patient admits to vaping however denies any tobacco use. No personal history of any cardiac disease. No other complaints at this time. - Related Data Home Medications Medication Instructions Recorded Confirmed No Known Home Medications 04/16/22 04/16/22 Allergies Allergy/AdvReac Type Severity Reaction Status Date / Time bee venom protein (honey bee) Allergy Anaphylaxis Verified 04/21/23 00:55 Review of Systems ROS Statement: Those systems with pertinent positive or pertinent negative responses have been documented in the HPI. ROS Other: All systems not noted in ROS Statement are negative. Past Medical History Past Medical History: No Reported History History of Any Multi-Drug Resistant Organisms: None Reported Past Surgical History: Adenoidectomy, Tonsillectomy Additional Past Surgical History / Comment(s): tubes in ears Past Anesthesia/Blood Transfusion Reactions: No Reported Reaction Past Psychological History: Anxiety Smoking Status: Vaper Past Alcohol Use History: Occasional Past Drug Use History: None Reported - Past Family History Mother Additional Family Medical History / Comment(s): anxiety, depression Father Family Medical History: Hypertension Sister(s) Family Medical History: No Reported History Son(s) Family Medical History: No Reported History General Exam Limitations: no limitations General appearance: alert, in no apparent distress Eye exam: Present: normal appearance Neck exam: Present: normal inspection Respiratory exam: Present: normal lung sounds bilaterally Cardiovascular Exam: Present: regular rate, normal rhythm GI/Abdominal exam: Present: soft Neurological exam: Present: alert, oriented X3 Skin exam: Present: warm, dry Course Vital Signs 05/24/23 05/24/23 20:15 20:40 Temperature 97.7 F Pulse Rate 82 Pulse Rate [ 81 Claims Analyst ] Respiratory 18 Rate Blood Pressure 138/78 O2 Sat by Pulse 100 Oximetry Medical Decision Making - Medical Decision Making Was pt. sent in by a medical professional or institution (LG Aguirre, TACK MAKER, urgent care, hospital, or group home...) When possible be specific @ -No Did you speak to anyone other than the patient for history (EMS, parent, family, police, friend...)? What history was obtained from this source @ -No Did you review nursing and triage notes (agree or disagree)? Why? @ -I reviewed and agree with nursing and triage notes Were old charts reviewed (outside hosp., previous admission, EMS record, old EKG, old radiological studies, urgent care reports/EKG's, group home records)? Report findings @ -No old charts were reviewed Differential Diagnosis (chest pain, altered mental status, abdominal pain women, abdominal pain men, vaginal bleeding, weakness, fever, dyspnea, syncope, headache, dizziness, GI bleed, back pain, seizure, CVA, palpatations, mental health, musculoskeletal)? @ -Differential Chest Pain: Stable Angina, Unstable Angina, STEMI, NSTEMI Aortic Dissection, Pneumothorax, Musculoskeletal, Esophageal Spasm GERD, Cholecystitis, Pancreatitis, Zoster, this is not meant to be an all-inclusive list. EKG interpreted by me (3pts min.). @ -EKG interpreted by me showing sinus rhythm. DE 141, QRS 84, QT/QTc 360/386 X-rays interpreted by me (1pt min.). @ -Chest x-ray interpreted by me showing no evidence of acute finding. CT interpreted by me (1pt min.). @ -None done U/S interpreted by me (1pt. min.). @ -None done What testing was considered but not performed or refused? (CT, X-rays, U/S, labs)? Why? @ -None What meds were considered but not given or refused? Why? @ -None Did you discuss the management of the patient with other professionals (professionals i.e. LG Aguirre, TACK MAKER, lab, RT, psych nurse, clinical social work aide, student worker, teacher, chief human resources officer, disease case manager rn)? Give summary @ -No Was smoking cessation discussed for >3mins.? @ -No Was critical care preformed (if so, how long)? @ -No Were there social determinants of health that impacted care today? How? (Homelessness, low income, unemployed, alcoholism, drug addiction, transportat ion, low edu. Level, literacy, decrease access to med. care, prison, rehab)? @ -No Was there de-escalation of care discussed even if they declined (Discuss DNR or withdrawal of care, Hospice)? DNR status @ -No What co-morbidities impacted this encounter? (DM, HTN, Smoking, COPD, CAD, Cancer, CVA, ARF, Chemo, Hep., AIDS, mental health diagnosis, sleep apnea, morbid obesity)? @ -None Was patient admitted / discharged? Hospital course, mention meds given and route, prescriptions, significant lab abnormalities, going to OR and other pertinent info. @ -Discharge 28-year-old male presented to the ED with episode of chest pain. Laboratory studies reviewed. Labs including CBC, CMP, troponin x 2, D-dimer and serology panel unremarkable. Chest x-ray showing no evidence of acute finding. EKG shows a normal sinus rhythm without acute ST or T wave changes. At this time patient has a heart score of 0 and is at low risk of major adverse cardiac event. Symptoms likely noncardiac in nature. At this time vital signs stable afebrile. Discharged home in stable condition advised to follow-up with his PCP. Provided referral to see cardiology. Discussed return precautions with p janes and family who verbalized agreement. Undiagnosed new problem with uncertain prognosis? @ -No Drug Therapy requiring intensive monitoring for toxicity (Heparin, Nitro, Insulin, Cardizem)? @ -No Were any procedures done? @ -No Diagnosis/symptom? @ -Chest pain Acute, or Chronic, or Acute on Chronic? @ -Acute Uncomplicated (without systemic symptoms) or Complicated (systemic symptoms)? @ -Uncomplicated Side effects of treatment? @ -No Exacerbation, Progression, or Severe Exacerbation? @ -No Poses a threat to life or bodily function? How? (Chest pain, [place], [place], pneumonia, PE, COPD, DKA, ARF, appy, cholecystitis, CVA, Diverticulitis, Homicidal, Suicidal, threat to staff... and all critical care pts) @ -No - Lab Data Result diagrams: 05/24/23 21:36 05/24/23 21:36 Lab Results 05/24/23 05/24/23 05/24/23 Range/Units 20:20 21:36 21:36 WBC 10.8 H (3.8-10.6) k/uL RBC 4.95 (4.30-5.90) m/uL Hgb 14.6 (13.0-17.5) gm/dL Hct 43.1 (39.0-53.0) % MCV 87.2 (80.0-100.0) fL MCH 29.5 (25.0-35.0) pg MCHC 33.8 (31.0-37.0) g/dL RDW 13.1 (11.5-15.5) % Plt Count 243 (150-450) k/uL MPV 10.4 Neutrophils % 75 % Lymphocytes % 18 % Monocytes % 4 % Eosinophils % 1 % Basophils % 1 % Neutrophils # 8.1 H (1.3-7.7) k/uL Lymphocytes # 2.0 (1.0-4.8) k/uL Monocytes # 0.5 (0-1.0) k/uL Eosinophils # 0.1 (0-0.7) k/uL Basophils # 0.1 (0-0.2) k/uL PT 10.8 (10.0-12.5) sec INR 1.0 (<1.2) APTT 26.0 (22.0-30.0) sec D-Dimer <0.17 (<0.60) mg/L FEU Sodium (137-145) mmol/L Potassium (3.5-5.1) mmol/L Chloride (98-107) mmol/L Carbon Dioxide (22-30) mmol/L Anion Gap mmol/L BUN (9-20) mg/dL Creatinine (0.66-1.25) mg/dL Est GFR (CKD-EPI)AfAm (>60 ml/min/1.73 sqM) Est GFR (CKD-EPI)NonAf (>60 ml/min/1.73 sqM) Glucose (74-99) mg/dL Calcium (8.4-10.2) mg/dL Magnesium (1.6-2.3) mg/dL Total Bilirubin (0.2-1.3) mg/dL AST (17-59) U/L ALT (4-49) U/L Alkaline Phosphatase (38-126) U/L Troponin I (0.000-0.034) ng/mL Total Protein (6.3-8.2) g/dL Albumin (3.5-5.0) g/dL Influenza Type A (PCR) Not Detected (Not Detectd) Influenza Type B (PCR) Not Detected (Not Detectd) RSV (PCR) Not Detected (Not Detectd) SARS-CoV-2 (PCR) Not Detected (Not Detectd) 05/24/23 05/24/23 05/25/23 Range/Units 21:36 21:36 00:41 WBC (3.8-10.6) k/uL RBC (4.30-5.90) m/uL Hgb (13.0-17.5) gm/dL Hct (39.0-53.0) % MCV (80.0-100.0) fL MCH (25.0-35.0) pg MCHC (31.0-37.0) g/dL RDW (11.5-15.5) % Plt Count (150-450) k/uL MPV Neutrophils % % Lymphocytes % % Monocytes % % Eosinophils % % Basophils % % Neutrophils # (1.3-7.7) k/uL Lymphocytes # (1.0-4.8) k/uL Monocytes # (0-1.0) k/uL Eosinophils # (0-0.7) k/uL Basophils # (0-0.2) k/uL PT (10.0-12.5) sec INR (<1.2) APTT (22.0-30.0) sec D-Dimer (<0.60) mg/L FEU Sodium 140 (137-145) mmol/L Potassium 4.0 (3.5-5.1) mmol/L Chloride 108 H (98-107) mmol/L Carbon Dioxide 22 (22-30) mmol/L Anion Gap 10 mmol/L BUN 15 (9-20) mg/dL Creatinine 0.86 (0.66-1.25) mg/dL Est GFR (CKD-EPI)AfAm >90 (>60 ml/min/1.73 sqM) Est GFR (CKD-EPI)NonAf >90 (>60 ml/min/1.73 sqM) Glucose 91 (74-99) mg/dL Calcium 10.7 H (8.4-10.2) mg/dL Magnesium 2.0 (1.6-2.3) mg/dL Total Bilirubin 0.9 (0.2-1.3) mg/dL AST 33 (17-59) U/L ALT 24 (4-49) U/L Alkaline Phosphatase 55 (38-126) U/L Troponin I <0.012 <0.012 (0.000-0.034) ng/mL Total Protein 8.4 H (6.3-8.2) g/dL Albumin 5.1 H (3.5-5.0) g/dL Influenza Type A (PCR) (Not Detectd) Influenza Type B (PCR) (Not Detectd) RSV (PCR) (Not Detectd) SARS-CoV-2 (PCR) (Not Detectd) Disposition Clinical Impression: Chest pain Disposition: HOME SELF-CARE Condition: Good Instructions (If sedation given, give patient instructions): Chest Pain (DC) Additional Instructions: Please return to the Emergency Department if symptoms worsen or any other concerns. Please follow-up with your primary care provider and/or cardiology. Is patient prescribed a controlled substance at d/c from ED?: No Referrals: None,Stated [Primary Care Provider] - 1-2 days Dilshad Fraser MD [STAFF PHYSICIAN] - 1-2 days Time of Disposition: 01:40
[2023-05-25 02:47] VITALS: BP 130/78; PULSE 79; TEMP 98
== END 2023-05-25 02:38 | disposition home or self-care (01) ==
LOC: EC 20:02
DX: R07.89 Other chest pain (principal); F17.290 Nicotine dependence, other tobacco product, uncomplicated; Z86.59 Personal history of other mental and behavioral disorders; Z20.822 Contact with and (suspected) exposure to COVID-19; Z91.030 Bee allergy status
CPT/HCPCS: 36415; 71046; 80053; 83735; 84484; 85025; 85379; 85610; 85730; 87636; 93005; 99284